=== PATIENT | female | born 1940 | race Caucasian/White ===

== ENCOUNTER → 2023-09-09 11:05 | Outpatient (REF) | payer OTHER, MEDICARE, BC, SELFPAY ==
[2023-09-09 11:26] LABS: % Basophils 0.7 % (0-2); % Eosinophils 3.3 % (0-6); % Immature Granulocytes 0.4 % (0-0.5); % Lymphocytes 37.8 % (20.5-51.1); % Monocytes 9.8 % (1.7-9.3); Absolute Eosinophils 0.2 10^3/uL (0-0.7); Absolute Lymphocytes 1.7 10^3/uL (1.2-3.4); Absolute Monocytes 0.5 10^3/uL (0.1-0.6); Absolute Neutrophils 2.2 10^3/uL (1.4-6.5); Hematocrit 26.3 % (37.0-47.0); Hemoglobin 8.2 g/dL (12.0-16.0); Mean Corp Hgb Conc. 31.2 g/dL (33.0-37.0); Mean Corpuscular Volume 73.9 fL (81.0-99.0); Mean Platelet Volume 9.9 fL (7.4-10.4); Nucleated Red Blood Cells % 0 %; Platelet Count 251 10^3/uL (130-400); Red Blood Cell Count 3.56 10^6/uL (4.20-5.40); Red Cell Dist. Width 16.6 % (11.5-14.5); White Blood Cell Count 4.6 10^3/uL (4.8-10.8)
[2023-09-09 12:32] LABS: Blood Urea Nitrogen 30 mg/dl (7-17); Calcium 8.4 mg/dl (8.4-10.2); Carbon Dioxide 20 mmol/L (22-30); Chloride 103 mmol/L (98-107); Glucose 105 mg/dl (70-99); Potassium 3.8 mmol/L (3.5-5.1); Sodium 136 mmol/L (135-145); eGFR 31.61
== END ==
LOC: OLABN 11:05
PROVIDERS: ATTENDING PHYSICIAN Student in an Organized Health Care Education/Training Program
DX: Z01.818 Encounter for other preprocedural examination (principal)
CPT/HCPCS: 36415; 80048; 85025

== ENCOUNTER → 2023-09-11 07:13 | Outpatient (REF) | payer MEDICARE, BC, SELFPAY | LOC: RAD 07:13 | PROVIDERS: ATTENDING PHYSICIAN Physician Assistant Surgical; FAMILY PHYSICIAN Internal Medicine | DX: S42.291A Other displaced fracture of upper end of right humerus, initial encounter for closed fracture (principal) | CPT/HCPCS: 73200 ==

== ENCOUNTER 2023-09-16 05:51 | Inpatient (IN) | payer MEDICARE, BC, SELFPAY ==
--- NOTE | 2023-09-08 10:02 | CM ---
Addendum entered by Carolina Espinosa 09/10/23 08:50:
Spoke with Carolina at [facility]. Reviewed upcoming surgery and plan for patient to return to [facility] day after surgery. They will contact daughter about holding the bed.
Addendum entered by Carolina Espinosa 09/10/23 07:11:
Spoke with patient's daughter, Inocencia. She confirms that patient is a short term resident at [facility] and that goal is for her to return home with her when able. She states that her plan is for patient to return to [facility] after her upcoming TSA. She will
speak with [facility] about paying to hold her mother's bed.
Original Note:
Patient has a fractured R Proximal humerus and is scheduled for a R Reverse TSA on 09/16/23. Patient is currently at [facility] for short term rehab. Call placed to [facility] and spoke with Maggie munitions handler supervisor ([phone]). She states that patient has been
there since 08/25/23. She requires total care and a mechanical lift is used for transfers. She is currently skilled and stay is being covered by Medicare.
Call placed to daughter, Inocencia. Message was left with request for return call to discuss discharge plans.
Plan: Orthopedic Navigator will be involved in the care of patient after surgery and will reassess discharge needs at that time.
--- NOTE | 2023-09-14 14:09 | PTCARENOTE ---
Emmanuelle at 's office was notified of the following abnormal labs: Hgb 8.2 (09/09/23); HgbA1c 8.0 (08/31/23) and INR 1.41 (08/16/23).
[2023-09-16] VITALS (28 sets, daily range): BP systolic 78–150; BP diastolic 51–111; PULSE 2–103; BMI 26.6
[2023-09-16 06:28] LABS: Glucose - Point of Care 76 mg/dl (70-99)
[2023-09-16] MEDS: MOBIC 15 MG PO (06:44)
[2023-09-16] MEDS: TYLENOL 1000 MG PO (06:44)
[2023-09-16] MEDS: NORMOSOL-R 1000 IV (06:44)
[2023-09-16] MEDS: CLEOCIN 50 IV (07:18)
[2023-09-16 09:07] LABS: Glucose - Point of Care 106 mg/dl (70-99)
--- NOTE | 2023-09-16 09:41 | PTCARENOTE ---
Patient desaturated and stopped breathing, patient ventilated and anesthesia called. Maxim Parra RN BSN.
--- NOTE | 2023-09-16 09:49 | SUR.PHASEI ---
Anesthesia ventilating patient narcan and romazcon gievn. Suggameadex 200mgs given.
--- NOTE | 2023-09-16 10:03 | SUR.PHASEI ---
Patient breathing by self and holding sats, more awake, still no speech. Non rebreather, OA, in place. E Pradeep langley RN BSN>
[2023-09-16] MEDS: LOPRESSOR 2.5 MG IV (10:05)
--- NOTE | 2023-09-16 10:17 | SUR.PHASEI ---
Patient now awake and groaning, BP stable and heart rate decreased. Maxim langley RN BSN.
--- NOTE | 2023-09-16 10:32 | PTCARENOTE ---
Patient now awake and asking for pain medicine. Dr Elizondo contacted. Maxim langley RN BSN.
[2023-09-16] MEDS: DILAUDID 0.25 MG IV ×2 (10:35→10:50)
--- NOTE | 2023-09-16 10:53 | SUR.PHASEI ---
Patient continues to groan and she she is in pain. Dilaudid given per Dr rosenberg, waiting for IV offirmev. Maxim Parra RN BSN.
--- NOTE | 2023-09-16 11:16 | CON.HOSP ---
Family Physician
-
Family Physician: INTERVIEWE UNKNOWN - PT NOT
Chief Complaint
-
Asked to see in PACU because of respiratory issues
History of Present Illness
Patient had a routine right reverse TSA today. She had a history of right humerus fracture.
Upon arrival to PACU within a short time she she had what the RN describes as a respiratory arrest for which she received Narcan, flumazenil and sugammadex. She was initially on nonrebreather currently switched to nasal cannula at 6 L.
Currently patient is more alert. She is oriented to self and place.
She currently denies shortness of breath but apparently was complaining of shortness of breath initially to FLAKE CUTTER OPERATOR.
Denies any chest pain.
Denies any nausea or vomiting.
Denies any cough.
Reviewing of past medical records patient had suspected left basilar pneumonia in August 2023. She is known to have COPD. History of sleep apnea with nocturnal hypoxemia
She was here in hospital end of August was discharged 09/04/2023 after an episode of acute hypoxic respite insufficiency attributed to sedation from oxycodone.
She had chest x-ray which showed improving left basilar atelectasis/pneumonia. She had a VQ scan which showed intermediate probability and ultrasound of the legs was negative for DVT. No anticoagulation was indicated at that time. Was seen by
pulmonary.
Medical History
Past Medical History
Past Medical History: Reports Arrhythmia (Paroxysmal A-fib), CAD, CHF, COPD, CVA, GERD, HTN, Hypothyroidism, NIDDM, Renal Failure (Chronic kidney disease stage IIIb) and Psychiatric (Anxiety/depression; mild cognitive impairment)
Past Surgical History: Reports Cardiac (CABG, Watchman procedure)
Social History
Tobacco: Non-smoker
Alcohol: None
Drug: None
Family History
Family History: Reviewed & Not Pertinent
Allergies / Home Medications
Allergies reflects when Allergies were last updated in [facility].
Home Medications with original date entered in [facility]
Allergy/Medication List:
Allergies
Allergy/AdvReac Type Severity Reaction Status Date / Time
adhesive Allergy Unknown Verified 09/16/23 06:56
amiodarone Allergy Unknown Verified 09/16/23 06:56
cephalexin [From Keflex] Allergy Unknown/tolerated Verified 09/16/23 06:56
ceftriaxone
latex Allergy Unknown Verified 09/16/23 06:56
prochlorperazine Allergy Unknown Verified 09/16/23 06:56
[From Compazine]
prochlorperazine edisylate Allergy Unknown Verified 09/16/23 06:56
[From Compazine]
prochlorperazine maleate Allergy Unknown Verified 09/16/23 06:56
[From Compazine]
Sulfa (Sulfonamide Allergy Unknown Verified 09/16/23 06:56
Antibiotics)
sulfasalazine Allergy pt states Verified 09/16/23 06:56
gives her
a headache
Home Medications
gabapentin 300 mg capsule 300 mg PO DAILY@829 Pain 09/23/22
glimepiride 2 mg tablet 2 mg PO DAILY@829 Diabetes 09/23/22
levothyroxine 112 mcg tablet 112 mcg PO DAILY@629 Thyroid 09/23/22
pantoprazole 40 mg tablet,delayed release 40 mg PO BID@829,2029 Gastrointestinal issue 09/23/22
rosuvastatin 20 mg tablet 20 mg PO DAILY@2029 High cholesterol 09/23/22
sertraline 50 mg tablet 50 mg PO DAILY@829 Mental Health 09/23/22
vibegron 75 mg tablet (Gemtesa) 75 mg PO DAILY@829 Urinary Issue 01/04/23
gabapentin 300 mg capsule 600 mg PO DAILY@2029 Pain 08/16/23
acetaminophen 325 mg tablet (Tylenol) 650 mg PO Q4H PRN mild pain/fever>100.4 09/02/23
acetaminophen 500 mg tablet (Pharbetol) 1,000 mg PO Q12H@0830,202909/02/23
albuterol sulfate 90 mcg/actuation aerosol inhaler 1 puff inhalation R Q6HPRN PRN dyspnea 09/02/23
benzocaine 20 %-resorcinol 3 % topical cream (Vagicaine) 1 applic topical BIDPRN PRN apply to vaginal area 09/02/23
bisacodyl 10 mg rectal suppository 10 mg [place] DAILY PRN q 3 days when no BM and MOM/lactulose ineffective 09/02/23
furosemide 40 mg tablet 40 mg PO DAILY@0830 09/02/23
magnesium hydroxide 400 mg/5 mL oral suspension (Milk of Magnesia) 30 ml PO HSPRN PRN constipation 09/02/23
methenamine hippurate 1 gram tablet 1 g PO Q12H@0830,202909/02/23
metoprolol succinate 25 mg tablet,extended release 24 hr (Toprol XL) 25 mg PO DAILY@0830 HTN 09/02/23
midodrine 10 mg tablet 5 mg PO TID PRN if SBP<100 or complaints of dizziness 09/02/23
multivitamin 1 tab PO DAILY@0830 09/02/23
alprazolam 0.25 mg tablet 0.25 mg PO HS PRN anxiety #10 tabs 09/04/23
oxycodone 5 mg capsule 5 mg PO BID PRN Pain #14 caps 09/04/23
chlorhexidine gluconate 4 % topical liquid (Hibiclens) 1 applic topical . DIRECTED 09/11/23
docusate sodium 100 mg capsule (Colace) 200 mg PO DAILY 09/11/23
mupirocin 2 % topical ointment 1 applic topical BID 09/11/23
Review of Systems
-
Unable to obtain full review of systems at this time due to: Other (Limited as the patient is improving with her mentation.)
Respiratory: Denies Cough or Trouble Breathing
Cardiac: Denies Chest Pain
Abdomen/GI: Denies Abdominal Pain, Nausea or Vomiting
Neurological: Denies Dizzy or Headache
Physical Exam
Vital Signs
Vital Signs
Temp Pulse Resp BP Pulse Ox
98.4 F 103 18 81/52 93
09/16/23 10:56 09/16/23 11:01 09/16/23 11:01 09/16/23 11:01 09/16/23 11:00
Physical Exam
General: No Apparent Distress
HEENT: Moist Mucous Membranes
Respiratory: Rales (Left lower zone predominant. There are a few in the right base) and Non Labored Respirations; Negative Wheezes or Accessory Resp Muscle Use
Cardiac: S1/S2, Regular Rhythm (On the monitor) and Tachycardia
GI: Soft and Non Tender
Neuro: Awake, Alert (Improving mentation) and Oriented (Place and person)
Psych: Calm
Laboratory Results
-
Pending
Data Reviewed
-
Lab Data: Labs Reviewed (Pending)
Impression / Plan
-
Acute hypoxic respiratory failure with respiratory arrest as witnessed by FLAKE CUTTER OPERATOR-improved with a combination of Narcan/flumazenil/sugammadex in PACU. Patient without any acute respiratory distress currently but still requiring 6 L of oxygen.
Unclear if it is all related to medication but rule out underlying cardiopulmonary acute issues.
Admit to IMU.
Get a stat chest x-ray.
Check EKG, troponins and BNP. Obtain ABG
Pulmonary consulted already.
Continue with current oxygen therapy.
Obtain speech eval prior to bed.
S/p elective right reverse TSA for right humerus fracture-continue postop care per orthopedics
CAD s/p prior CABG-patient currently without chest pain. Follow on telemetry. Obtain EKG and troponins. Continue with her home cardiac regimen.
Paroxysmal atrial fibrillation s/p Watchman procedure-continue the beta-halima. Patient currently with tachycardia but in regular rhythm on telemetry. Obtain EKG.
Chronic heart failure with preserved EF-rule out decompensation. Obtain a chest x-ray and BNP. On 40 mg of Lasix at home.
History of COPD-currently with no reactive airways.
History of obstructive sleep apnea not on CPAP
Full code
RENAE FLAKE CUTTER OPERATOR
RENAE COLE
--- NOTE | 2023-09-16 11:21 | SUR.PHASEI ---
1100 BP 81/52, DR rosenberg informed, Offirmev held due to Hypotension, pain is better. Maxim Parra PEER FINANCIAL COUNSELOR.
--- NOTE | 2023-09-16 11:38 | SUR.PHASEI ---
Report to Margie, patient stable and calm at this time. BP 91/53. Heart rate 85bpm. sat 95% on 4/l . Maxim Parra RN BSN.
--- NOTE | 2023-09-16 11:59 | TRANSFER ---
Patient transferred to IMU post respiratory arrest in PACU. Report to Margie MCACIN. Patient wakes to name and answers appropriately. Maxim Parra RN BSN.
--- NOTE | 2023-09-16 12:08 | CON.PUL ---
Consultation
Consultation Request
Date/Time Consultation Requested: 09-16-23
Date/Time Consultation Performed: 09-16-23
Requesting Provider: Dr Rodriguez
Performing Provider: Dr Chester
Reason for Consultation: hypoxemia
Medical History
-
Chief Complaint: hypoxemia
History of Present Illness:
Mrs Margie Rolon is an 83/W adm 09-16 for witnessed respiratory arrest upon arrival to PACU from elective right reverse TSA for right humerus fracture. Given narcan/flumazenil/sugammadex with clinical improvement but still requiring O2. Adm to IMU
H/o nocturnal hypoxemia on 2L
LLNS, no h/o OLD
Seen at IMU, sleeping, arousable, denies major complaints
Past Medical History
Past Medical History: Other (see A&P for PMH/PSH)
Social History
Tobacco: Non-smoker
Alcohol: None
Drug: None
Personal: Single
Living: With Family
Employment: Not Employed
Family History
Family History: Reviewed & Not Pertinent
Allergies / Home Medications
Allergies
Allergy/AdvReac Type Severity Reaction Status Date / Time
adhesive Allergy Unknown Verified 09/16/23 06:56
amiodarone Allergy Unknown Verified 09/16/23 06:56
cephalexin [From Keflex] Allergy Unknown/tolerated Verified 09/16/23 06:56
ceftriaxone
latex Allergy Unknown Verified 09/16/23 06:56
prochlorperazine Allergy Unknown Verified 09/16/23 06:56
[From Compazine]
prochlorperazine edisylate Allergy Unknown Verified 09/16/23 06:56
[From Compazine]
prochlorperazine maleate Allergy Unknown Verified 09/16/23 06:56
[From Compazine]
Sulfa (Sulfonamide Allergy Unknown Verified 09/16/23 06:56
Antibiotics)
sulfasalazine Allergy pt states Verified 09/16/23 06:56
gives her
a headache
Home Medications
Medication Instructions Recorded Confirmed Last Taken Type
gabapentin 300 mg capsule 300 mg PO DAILY@0830 Pain 09/23/22 09/16/23 09/15/23 08:30 History
glimepiride 2 mg tablet 2 mg PO DAILY@0830 Diabetes 09/23/22 09/16/23 09/15/23 08:30 History
levothyroxine 112 mcg tablet 112 mcg PO DAILY@0630 Thyroid 09/23/22 09/16/23 09/15/23 06:30 History
pantoprazole 40 mg tablet,delayed 40 mg PO BID@30,202909/23/22 09/16/23 09/15/23 20:30 History
release Gastrointestinal issue
rosuvastatin 20 mg tablet 20 mg PO DAILY@2029 High 09/23/22 09/16/23 09/15/23 20:30 History
cholesterol
sertraline 50 mg tablet 50 mg PO DAILY@0830 Mental Health 09/23/22 09/16/23 09/15/23 08:30 History
vibegron 75 mg tablet (Gemtesa) 75 mg PO DAILY@0830 Urinary Issue 01/04/23 09/16/23 09/15/23 20:30 History
gabapentin 300 mg capsule 600 mg PO DAILY@2029 Pain 08/16/23 09/16/23 09/15/23 20:30 History
acetaminophen 325 mg tablet 650 mg PO Q4H PRN mild 09/02/23 09/16/23 09/14/23 12:30 History
(Tylenol) pain/fever>100.4
acetaminophen 500 mg tablet 1,000 mg PO Q12H@0830,202909/02/23 09/16/23 09/15/23 20:30 History
(Pharbetol)
albuterol sulfate 90 mcg/actuation 1 puff inhalation R Q6HPRN PRN 09/02/23 09/16/23 Unknown History
aerosol inhaler dyspnea
benzocaine 20 %-resorcinol 3 % 1 applic topical BIDPRN PRN apply 09/02/23 09/16/23 09/15/23 20:30 History
topical cream (Vagicaine) to vaginal area
bisacodyl 10 mg rectal suppository 10 mg [place] DAILY PRN q 3 days when 09/02/23 09/16/23 Unknown History
no BM and MOM/lactulose ineffective
furosemide 40 mg tablet 40 mg PO DAILY@0830 09/02/23 09/16/23 09/15/23 08:30 History
magnesium hydroxide 400 mg/5 mL 30 ml PO HSPRN PRN constipation 09/02/23 09/16/23 Unknown History
oral suspension (Milk of Magnesia)
methenamine hippurate 1 gram tablet 1 g PO Q12H@0830,2030 09/02/23 09/16/23 09/15/23 20:30 History
metoprolol succinate 25 mg 25 mg PO DAILY@0830 HTN 09/02/23 09/16/23 09/15/23 08:30 History
tablet,extended release 24 hr
(Toprol XL)
midodrine 10 mg tablet 5 mg PO TID PRN if SBP<100 or 09/02/23 09/16/23 Unknown History
complaints of dizziness
multivitamin 1 tab PO DAILY@0830 09/02/23 09/16/23 Unknown History
alprazolam 0.25 mg tablet 0.25 mg PO HS PRN anxiety #10 tabs 09/04/23 09/16/23 09/15/23 23:59 Rx
oxycodone 5 mg capsule 5 mg PO BID PRN Pain #14 caps 09/04/23 09/16/23 09/15/23 23:59 Rx
chlorhexidine gluconate 4 % 1 applic topical . DIRECTED 09/11/23 09/16/23 09/15/23 20:30 History
topical liquid (Hibiclens)
docusate sodium 100 mg capsule 200 mg PO DAILY 09/11/23 09/16/23 09/15/23 08:30 History
(Colace)
mupirocin 2 % topical ointment 1 applic topical BID 09/11/23 09/16/23 09/15/23 18:30 History
Review of Systems
-
Unable to Obtain full review of systems at this time due to: Acuity
Vitals / Labs / Diagnostic Testing
Vital Signs
Temp Pulse Resp BP Pulse Ox
98.3 F 95 14 91/53 95
09/16/23 11:40 09/16/23 11:30 09/16/23 11:30 09/16/23 11:30 09/16/23 11:30
Diagnostic Testing:
Physical Exam
-
HEENT: Normocephalic and Moist Mucous Membranes
Cardiovascular: Regular Rhythm, Murmur (n), Peripheral Edema and JVD
Respiratory: Clear and Non-Labored Respirations
GI: Soft, Non Distended and Non Tender
Neurology: Other (sleepy, arousable)
Skin: Dry
General: Respiratory Distress
Assessment
-
Assessment:
Mrs Margie Rolon is an 83/W adm 09-16 for witnessed respiratory arrest upon arrival to PACU from elective right reverse TSA for right humerus fracture. Given narcan/flumazenil/sugammadex with clinical improvement but still requiring O2. Adm to IMU
Impression:
Witnessed respiratory arrest post orthopedic surgery
Responded to narcan/flumazenil/sugammadex
Conditions LAUNDERER HAND:
Adm 09-02 to 24 for hypoxemia, decreased MS, hypoglycemia. Negative RUBÉN doppler, V/Q with suspected perfusion defect at L base but associated with atelectatic area
Suspected L basilar pneumonia, adm DH in early Aug 2023
Nocturnal hypoxemia on O 2 2L
Chronically dilated and hypokinetic right ventricle since echocardiogram May 2022
RUE fracture secondary to fall 08-25
Afib
Asthma
CKD s/p 2 m HD in past
CAD
Chronic anemia
Cancer (Breast)
COPD
CVA
GERD
HTN
Hypercholesterolemia
NIDDM
Hypothyroidism
Anxiety
Depression
Headaches
Slight Dementia
Sleep apnea
PNA
RBBB
Rheumatic heart disease
Hep C
IBS
GI bleed
UTI
Fatty liver
Anemia
Cardiac (bypass, Ablation)
Cholecystectomy
Ovarian cyst
Uterine fibroids
Hysterectomy
Nephrectomy
Non-smoker
Plan:
Witnessed respiratory arrest post orthopedic surgery
Likely secondary to anesthetic meds for surgey in an elderly frail patient with outpatient use of gabapentin, sertraline, alprazolam
Responded to narcan/flumazenil/sugammadex
Of note, recent transient decrease in MS and hypoxemia in last adm, suspected due to opiate, gabapentin, sertraline, alprazolam used as outpatient LAUNDERER HAND
Seen at IMU
Currently on O2 4L NC, POx 96%
Sleeping, in no resp distress, arousable, denies any major complaints, slightly confused
ABG on 4L: mild respiratory acidosis with normoxemia
Start short BPAP trial 21/12 with O2 at 3L, keep POx >=94%
Alb nebs tid and prn for now
Follow MS
Keep asp precs
IS when able
Pain mgmt
Avoid opiates as much as possible
Avoid sedatives medications as much as possible
On high dose ASA per ortho
Diagnostic tests:
CXR 09-16-23: portable, blurred L diaphragm, no gross infiltrates. Sternotomy wiring
CXR 09-02-23 c/ 09: no change in L basilar atelectasis
V/Q 09-03-23: intermediate prob, one mismatch segmental perfusion defect in LLL with corresponding L base atelectasis (unchanged on previous CXR)
RUBÉN doppler 09-02-23: negative
TTE 01-06-23
CONCLUSIONS
Normal left ventricular chamber size. Normal left ventricular wall thickness.
Normal LV systolic function. Estimate ejection fraction 50 to 55% visually.
There are no regional wall motion abnormalities noted on a technically
difficult study. Diastolic function indeterminate.
Mitral valve opens normally. Mitral annular calcification. Trace mitral
regurgitation.
Tricuspid valve opens normally. Mild to moderate tricuspid regurgitation.
Estimated pulmonary artery pressure of 44 mmHg assuming a right atrial pressure
of 3 mmHg.
Severely dilated right atrium.
Dilated hypokinetic right ventricle.
Since echocardiogram May 2022, right ventricle is dilated and hypokinetic.
--- NOTE | 2023-09-16 12:23 | W.PN.ORTHO ---
Today's Communication / Plan
-
Monitor O2 and hgb closely.
Await lab/CXR/EKG results.
Work w/ PT and OT as able.
Assessment
.
Distal Motor Intact: Yes
Dressing:
Clean, dry and intact.
Assessment:
Closed displaced fracture of proximal end of R humerus after mechanical fall, status post R Reverse TSA w/ Dr Rodriguez 09/16/23
DVT prophylaxis - ASA 325 mg PO daily x4 weeks, b/l venous foot pumps
Joint prophylaxis - Clindamycin 300 mg PO TID x3 days (total of 9 doses). Clindamycin chosen d/t various medication allergies
Pain control: Tylenol QID (dose reduced d/t MAZARIEGOS), resumption of home Gabapentin, and Oxycodone as needed. Would be fine w/ change to different narcotic as needed/narcotic hold should it effect her breathing and cognition. Will monitor closely.
Post-operative course complicated by breathing issues in PACU. Given complexity of patient's PMHx and her current post-operative course, will transfer to hospitalist service due to need for higher level of care (IMU).
Pulmonary has also been consulted.
She denies any current SOB, chest pain when asked.
Reports she 'sometimes' uses supplemental O2 at [place]. When asked how often, she replied 'maybe once a month'.
Notable PMHx includes A fib status post MAZE 2011 and Watchman 2016 (no OAC), CHFpEF, RONDA, COPD, recent LLL pneumonia requiring hospital admission 08/16/23, and opioid dependence.
Labs/CXR/EKG still pending.
Will continue to follow from an orthopedic standpoint.
Plan for d/c back to [facility] when stable.
Plan
.
Surgery / Date: R Reverse TSA w/ Dr Rodriguez 09/16/23
DVT Prophylaxis: Aspirin
Activity:
Out of bed.
PT/OT
Discharge Plan: SNF
Subjective
.
.:
Patient examined resting in PACU.
Breathing issues noted while recovering; both hospitalist and pulmonary contacted for further medical guidance. Pt currently on 6L supplemental O2 during my eval.
R shoulder pain well tolerated after 2 doses of IV Dilaudid in PACU.
Vital Signs and Labs
.
Vital Signs and Labs:
Temp Pulse Resp BP Pulse Ox
97.3 F 115 15 139/84 95
09/16/23 08:45 09/16/23 09:15 09/16/23 09:15 09/16/23 09:15 09/16/23 09:15
Physical Exam
-
HEENT: No pallor, cyanosis, or jaundice. Throat clear.
NECK: Supple. No JVD.
RESPIRATORY: Rales present LL lobe. Breathing non-labored.
CVS: Irregular irregular.
EXTREMITIES: + RUE sling. Able to wiggle fingers b/l.
RN TRAUMA: AOx2 (person, place). Mild cognitive impairment noted.
[2023-09-16 12:24] LABS: Glucose - Point of Care 204 mg/dl (70-99)
[2023-09-16 12:35] LABS: B.E. -2.5 mmol/L; HCO3 24.1 mmol/L (21-28); O2 Saturation % 98.2 % (94-98); PCO2 49 mmHg (32-35); PO2 99 mmHg (83-108)
[2023-09-16 13:47] LABS: Hematocrit 31.3 % (37.0-47.0); Hemoglobin 9.2 g/dL (12.0-16.0); Mean Corp Hgb Conc. 29.4 g/dL (33.0-37.0); Mean Corpuscular Hgb 22.8 pg (27.0-31.0); Mean Corpuscular Volume 77.7 fL (81.0-99.0); Mean Platelet Volume 9.1 fL (7.4-10.4); Platelet Count 264 10^3/uL (130-400); Red Blood Cell Count 4.03 10^6/uL (4.20-5.40); Red Cell Dist. Width 15.9 % (11.5-14.5); White Blood Cell Count 6.7 10^3/uL (4.8-10.8)
[2023-09-16] MEDS: VENTOLIN NEBULES 2.5 MG INH ×2 (13:53→19:58)
[2023-09-16 14:00] LABS: Blood Urea Nitrogen 32 mg/dl (7-17); Calcium 8.2 mg/dl (8.4-10.2); Carbon Dioxide 23 mmol/L (22-30); Chloride 102 mmol/L (98-107); Estimated Creatinine Clearance 25 ml/min; Glucose 200 mg/dl (70-99); Potassium 4.9 mmol/L (3.5-5.1); Sodium 133 mmol/L (135-145); eGFR 27.44
[2023-09-16 14:16] LABS: NT-proBNP 7910 pg/ml; Troponin I 0.164 ng/ml
[2023-09-16] MEDS: LASIX PO (14:27)
[2023-09-16] MEDS: TOPROL XL PO (14:28)
[2023-09-16] MEDS: ZOLOFT PO (14:28)
[2023-09-16] MEDS: PROTONIX PO (14:28)
[2023-09-16] MEDS: NEURONTIN PO (14:28)
[2023-09-16] MEDS: ProAmatine PO (14:29)
[2023-09-16] MEDS: TYLENOL PO ×2 (14:29→17:14)
[2023-09-16 17:12] LABS: Glucose - Point of Care 231 mg/dl (70-99)
[2023-09-16] MEDS: OFIRMEV 100 IV (17:12)
[2023-09-16] MEDS: NSS 1000 IV (17:12)
[2023-09-16] MEDS: ProAmatine 5 MG PO (17:13)
[2023-09-16] MEDS: ASPIRIN 325 MG PO (17:14)
[2023-09-16] MEDS: NOVOLOG FLEXPEN-MODERATE RESISTANCE 3 UNITS SC (17:18)
[2023-09-16] MEDS: CLEOCIN PO (18:44)
[2023-09-16] MEDS: NOVOLOG FLEXPEN-MODERATE RESISTANCE SC (18:46)
[2023-09-16 19:55] LABS: Troponin I 0.401 ng/ml
[2023-09-16] MEDS: BACTROBAN 2% OINTMENT 1 APPLIC NASAL (20:41)
[2023-09-16] MEDS: PROTONIX 40 MG PO (20:41)
[2023-09-16] MEDS: COLACE 100 MG PO (20:41)
[2023-09-16] MEDS: SENOKOT 17.1999999999999993 MG PO (20:41)
[2023-09-16] MEDS: CRESTOR 20 MG PO (20:41)
[2023-09-16] MEDS: NEURONTIN 300 MG PO (20:41)
[2023-09-16] MEDS: CLEOCIN 300 MG PO (21:20)
[2023-09-16] MEDS: TYLENOL 500 MG PO (21:20)
[2023-09-16] MEDS: ROXICODONE 5 MG PO (21:24)
[2023-09-16 21:38] LABS: Glucose - Point of Care 258 mg/dl (70-99)
[2023-09-17] VITALS (20 sets, daily range): BP systolic 101–155; BP diastolic 62–128; PULSE 81; O2SAT 93
[2023-09-17] MEDS: XANAX 0.25 MG PO (00:13)
[2023-09-17 03:57] LABS: Hematocrit 27.6 % (37.0-47.0); Hemoglobin 8.4 g/dL (12.0-16.0)
[2023-09-17] MEDS: ROXICODONE 5 MG PO (04:07)
[2023-09-17 04:30] LABS: Troponin I 0.888 ng/ml
[2023-09-17] MEDS: SYNTHROID 112 MCG PO (05:51)
--- NOTE | 2023-09-17 05:58 | PTCARENOTE ---
assumed care of patient- pt is AAOx2-3, forgetful, pt moans out constantly and when asked what is wring patient says nothing. garbled speech noted and anxious at times. pt was on 4L NC at start of shift- titrated down to 2L- 94%. PW in place but
only put out 50ml- pt bladder scanned for 816ml- straight cath'd for 850ml. right shoulder aquacell intact- sling repositioned on patient- ice in place. IV fluids d/c'd this morning per order. foot pumps placed on patient. troponin trending up-
notified covering AUTO REFINISHER of curve up- troponin lab draw ordered for 0900. neurovascular checks to right arm- mild loss of sensation to arm at beginning of shift- this AM pt reports full sensation is back. q2t- care ongoing.
--- NOTE | 2023-09-17 06:19 | W.PN.UPDATE ---
Update Note
Progress Note Update
elevated troponin noted, will continue to peak, patient asymptomatic.
[2023-09-17] MEDS: VENTOLIN NEBULES INH (07:30)
[2023-09-17] MEDS: SENOKOT 17.1999999999999993 MG PO ×2 (07:50→21:03)
[2023-09-17] MEDS: COLACE 100 MG PO ×2 (07:51→21:03)
[2023-09-17] MEDS: ZOLOFT 50 MG PO (07:51)
[2023-09-17] MEDS: CLEOCIN 300 MG PO ×3 (07:53→21:03)
[2023-09-17] MEDS: NEURONTIN 300 MG PO ×2 (07:55→21:03)
[2023-09-17] MEDS: ASPIRIN 325 MG PO (07:55)
[2023-09-17] MEDS: TYLENOL 500 MG PO ×4 (07:55→21:03)
[2023-09-17] MEDS: PROTONIX 40 MG PO ×2 (07:55→21:03)
[2023-09-17] MEDS: LASIX PO (08:00)
[2023-09-17] MEDS: TOPROL XL 25 MG PO (08:00)
[2023-09-17] MEDS: ProAmatine 5 MG PO ×2 (08:00→12:37)
[2023-09-17] MEDS: BACTROBAN 2% OINTMENT 1 APPLIC NASAL ×2 (08:01→21:04)
[2023-09-17] MEDS: NOVOLOG FLEXPEN-MODERATE RESISTANCE 1 UNITS SC ×2 (08:12→17:12)
[2023-09-17 08:16] LABS: Glucose - Point of Care 150 mg/dl (70-99)
[2023-09-17] MEDS: ROXICODONE 7.5 MG PO ×2 (08:17→12:37)
--- NOTE | 2023-09-17 08:35 | W.PN.HOSP.TC ---
Today's Communication/Plan
-
Transfer to tele
Consult cards
Assessment / Plan
Assessment / Plan
Acute hypoxic respiratory failure with respiratory arrest as witnessed by COVER MAKING MACHINE OPERATOR-improved with a combination of Narcan/flumazenil/sugammadex in PACU.� Patient without any acute respiratory distress immediately in PACU and remained so now. She is
now off of oxygen. She is without any respiratory complaints. Suspect related to medication doubt underlying cardiopulmonary acute issues.
Chest x-ray reviewed. ABG showed acute hypercapnia possibly secondary to respiratory depression and arrest. Currently she is alert and oriented. No need for repeat ABG.
Pulmonary following
Abnormal troponins-without chest pain. EKG yesterday showed atrial fibrillation with right bundle branch block. Patient known to have paroxysmal atrial fibrillation. Troponin peak 0.8. Suspect non-PA troponin elevation. Consult cardiology
S/p elective right reverse TSA for right humerus fracture-continue postop care per orthopedics
Microcytic anemia-stable H&H compared to recent. Check iron studies and Hemoccult stools.
Chronic kidney disease stage IV-creatinine at her baseline.
CAD s/p prior CABG-patient currently without chest pain.� Follow on telemetry.� Continue with her home cardiac regimen.
Paroxysmal atrial fibrillation s/p Watchman procedure-continue the beta-halima. Sinus rhythm today
Chronic heart failure with preserved EF-clinically compensated. Continue with home dose of Lasix.
History of COPD-currently with no reactive airways.
History of obstructive sleep apnea not on CPAP
Transfer to telemetry
Anticipated Discharge: 24 - 48 hours
Subjective/Interval History
-
Date of Service: September 17, 2023
Patient currently on room air. She is alert and oriented. Getting her breakfast fed by nurse aide. No nausea vomiting.
Denies any shortness of breath or chest pain. Right shoulder pain is okay.
Objective Data
-
Labs:
Laboratory Results
09/17/23
03:45
Hgb 8.4 L
Hct 27.6 L
Vital Signs:
Vital Signs
Temp Pulse Resp BP Pulse Ox
98.1 F 85 18 122/70 94
09/17/23 04:30 09/17/23 08:00 09/17/23 07:32 09/17/23 08:00 09/17/23 07:32
I&O
09/16/23 09/17/23 09/18/23
06:59 06:59 06:59
Intake Total 198 / 198
Output Total 1580 / 1580
Balance -1382 / -1382
Review of Systems
-
Constitutional: Denies Fever
EENT: Denies Sore Throat
Respiratory: Denies Cough
Neuro: Denies Dizzy
Physical Exam
-
General: No Apparent Distress
HEENT: Moist Mucous Membranes
Respiratory: Clear to Auscultation
Cardiac: Regular Rhythm and S1/S2
GI: Soft
Musculoskeletal: Other (Right shoulder surgical site dressing is clean)
Neuro: AO x 3
Psych: Calm; Negative Confused
Data Reviewed
-
Labs: Labs Reviewed by me
--- NOTE | 2023-09-17 08:40 | CON.CAR ---
Addendum entered and electronically signed by Zaire Nuñez MD 09/17/23 13:30:
Patient denies complaints, pleasantly confused, daughter at bedside
allergies: Amiodarone, cephalosporins, Compazine, sulfa
Outpatient meds: Reviewed furosemide is 40 a day, Gemtesa furosemide, metoprolol ER 25 mg a day, midodrine 3 times daily, rosuvastatin, sertraline, mag again
Inpatient meds: Furosemide 40 mg a day, gabapentin, levothyroxine, metoprolol ER 25 daily, rosuvastatin 20 mg a day, sertraline 50 mg daily, aspirin 325 mg, midodrine 5 mg 3 times daily
PMH/PSH/SH/FH: Reviewed
125/69, pulse 83, resp rate 16, afebrile
Pleasantly confused, right arm in sling, incision intact, lungs Limited exam due to inability to move, intermittent extrasystoles, no obvious murmurs, JVD difficult to assess, abdomen benign extremities without much lower extremity edema, neuro
confused nonfocal
ECG: Sinus rhythm, borderline low voltage, right bundle branch block left axis, cannot exclude inferior lateral NC
ECG #1: Atrial fibrillation, controlled trickle response, right bundle, inferior, possible lateral NC
Telemetry with atrial fibrillation and controlled ventricular response
Hemoglobin 8.4, platelets 264, BUN/creatinine 32 and 1.8, creatinine had been 2.2 on the , proBNP 7910, on the had been 13,114, lowest last year was 2680, peak troponin is 1.08
Impression:
Acute hypoxic respiratory failure with respiratory arrest in PACU post-op shoulder surgery 09/16/23
s/p Elective right reverse TSA 09/16/23
h/o fall and right humerus fracture 08/25/23
h/o acute hypoxemic respiratory insufficiency and somnolence likely due to opiates, gabapentin, sertraline and alprazolam prior to admission 09/02/23
Elevated Troponin
CAD s/p CABG WOOD-LAD, SVG-OM and MAZE 2011
Paroxysmal Afib
Not chronically anticoagulated due to Watchman in place
h/o Watchman placement 2016
very small leak (<5mm) by HUSAM 01/01/17 and 07/06/17, but this size leak is acceptable for this device.h/o CVA 06/2017
CKD 4
Chronic HFpEF
cRBBB
HTN
COPD
Dementia/cognitive dysfunction
Anemia of Chronic Disease
Hull cirrhosis
DM-II with Neuropathy
Hypothyroidism
Echo 05/12/2022:�normal left ventricular size and function with ejection fraction of 55 to 60% and mild LVH.� Mild mitral regurgitation.� Mild tricuspid insufficiency with mildly elevated pulmonary pressures estimated at 40 to 45 mmHg.� No
significant change from September 20, 2021
Echo 01/06/2023: Ejection fraction 50 to 55%, dilated hypokinetic right ventricle
Echo 08/17/23: EF 50% with moderate TR, pulmonary artery pressure 32 mmHg, severely dilated and hypokinetic right ventricle flattened septum in diastole consistent with RV pressure overload and no significant change from December 2022.
Plan:
She presents with a non-NC troponin elevation related to the physiologic stress of respiratory arrest. She appears fairly stable despite this. She is now postop day 1 following reverse right total shoulder arthroplasty
She is still having paroxysmal atrial fibrillation with a controlled ventricular response
Given CAD and elevated troponin, along with recurrent atrial fibrillation, would favor addition of a very low-dose of metoprolol ER
Otherwise patient is stable. If needed, patient could be discharged later today, but I would prefer to observe overnight given troponin elevation and initiation of metoprolol.
I do not think she needs an echo, etc. Our strategy should be conservative given her comorbidities, would not pursue stress testing, etc.
We will arrange for cardiology follow-up.
Original Note:
Consultation
Consultation Request
Date/Time Consultation Requested: 09/17/23 at 0823
Date/Time Consultation Performed: 09/17/23 at 0840
Requesting Provider: Dr. Hamilton
Performing Provider: Dr. TARA Nuñez
Reason for Consultation: Elevated Troponin
Medical History
-
History of Present Illness:
Patient had a respiratory arrest event in PACU yesterday and now her Troponin is elevated so cardiology has been consulted. Patient fell and fractured her right humerus 08/25/23 and was sent to [facility] for rehab. Patient was sent from [facility] to for
respiratory distress and somnolence on 09/02/23. That event was thought to be from recent initiation of pain meds for her fracture. Patient was seen in the cardiology office 09/09/23 for preoperative cardiovascular evaluation for elective right
reverse TSA. Patient reported feeling well at that time and denied any chest pain or SOB. Patient had an up to date echo from 08/17/23 that showed EF 50% and a dilated and hypokinetic RV that was unchanged from echo 12/2022. Patient had an admission
for PNA, CHF and ERIKA 08/16/23 until 08/21/23 and discharge weight was 189 lbs. Patient says she felt well leading up to surgery yesterday and that she does not recall feeling SOB post-op. Nursing and attending notes reviewed, patient was noted to be
acutely hypoxic and apneic upon arrival to PACU and was ventilated and then given Narcan, flumazenil and sugammadex with improvement in oxygenation and respirations. ECG at that time looked like Afib, but now back in SR. Initial Troponin was 0.164
and now up to 0.888. No chest pain.
PMH:
h/o fall and right humerus fracture 08/25/23
h/o acute hypoxemic respiratory insufficiency and somnolence likely due to opiates, gabapentin, sertraline and alprazolam prior to admission 09/02/23
CAD s/p CABG WOOD-LAD, SVG-OM and MAZE 2011
Paroxysmal Afib
Not chronically anticoagulated due to Watchman in place
h/o Watchman placement 2016
very small leak (<5mm) by HUSAM 01/01/17 and 07/06/17, but this size leak is acceptable for this device.
h/o CVA 06/2017
CKD 4
Chronic HFpEF
cRBBB
HTN
COPD
Dementia/cognitive dysfunction
Anemia of Chronic Disease
Hull cirrhosis
DM-II with Neuropathy
Hypothyroidism
Past Medical History
Past Surgical History: Cardiac (CABG 2012, Watchman 2017), Gynecological (BLADIMIR BSO) and Orthopedic
Social History
Tobacco: Non-Smoker
Alcohol: None
Drug: None
Living: Correction (previously lived in her own home, now at [facility] for rehab)
Family History
Family History: CAD and Cancer
Allergies / Home Medications
Allergy/AdvReac Type Severity Reaction Status Date / Time
adhesive Allergy Unknown Verified 09/16/23 06:56
amiodarone Allergy Unknown Verified 09/16/23 06:56
cephalexin [From Keflex] Allergy Unknown/tolerated Verified 09/16/23 06:56
ceftriaxone
latex Allergy Unknown Verified 09/16/23 06:56
prochlorperazine Allergy Unknown Verified 09/16/23 06:56
[From Compazine]
prochlorperazine edisylate Allergy Unknown Verified 09/16/23 06:56
[From Compazine]
prochlorperazine maleate Allergy Unknown Verified 09/16/23 06:56
[From Compazine]
Sulfa (Sulfonamide Allergy Unknown Verified 09/16/23 06:56
Antibiotics)
sulfasalazine Allergy pt states Verified 09/16/23 06:56
gives her
a headache
Medication Instructions Recorded Confirmed Type
gabapentin 300 mg capsule 300 mg PO DAILY@0830 Pain 09/23/22 09/16/23 History
glimepiride 2 mg tablet 2 mg PO DAILY@0830 Diabetes 09/23/22 09/16/23 History
levothyroxine 112 mcg tablet 112 mcg PO DAILY@0630 Thyroid 09/23/22 09/16/23 History
pantoprazole 40 mg tablet,delayed 40 mg PO BID@0830,2030 09/23/22 09/16/23 History
release Gastrointestinal issue
rosuvastatin 20 mg tablet 20 mg PO DAILY@2029 High 09/23/22 09/16/23 History
cholesterol
sertraline 50 mg tablet 50 mg PO DAILY@829 Mental Health 09/23/22 09/16/23 History
vibegron 75 mg tablet (Gemtesa) 75 mg PO DAILY@829 Urinary Issue 01/04/23 09/16/23 History
gabapentin 300 mg capsule 600 mg PO DAILY@2029 Pain 08/16/23 09/16/23 History
acetaminophen 325 mg tablet 650 mg PO Q4H PRN mild 09/02/23 09/16/23 History
(Tylenol) pain/fever>100.4
acetaminophen 500 mg tablet 1,000 mg PO Q12H@09/02/23 09/16/23 History
(Pharbetol)
albuterol sulfate 90 mcg/actuation 1 puff inhalation R Q6HPRN PRN 09/02/23 09/16/23 History
aerosol inhaler dyspnea
benzocaine 20 %-resorcinol 3 % 1 applic topical BIDPRN PRN apply 09/02/23 09/16/23 History
topical cream (Vagicaine) to vaginal area
bisacodyl 10 mg rectal suppository 10 mg DC DAILY PRN q 3 days when 09/02/23 09/16/23 History
no BM and MOM/lactulose ineffective
furosemide 40 mg tablet 40 mg PO DAILY@82909/02/23 09/16/23 History
magnesium hydroxide 400 mg/5 mL 30 ml PO HSPRN PRN constipation 09/02/23 09/16/23 History
oral suspension (Milk of Magnesia)
methenamine hippurate 1 gram tablet 1 g PO Q12H@09/02/23 09/16/23 History
metoprolol succinate 25 mg 25 mg PO DAILY@829 HTN 09/02/23 09/16/23 History
tablet,extended release 24 hr
(Toprol XL)
midodrine 10 mg tablet 5 mg PO TID PRN if SBP<100 or 09/02/23 09/16/23 History
complaints of dizziness
multivitamin 1 tab PO DAILY@0830 09/02/23 09/16/23 History
alprazolam 0.25 mg tablet 0.25 mg PO HS PRN anxiety #10 tabs 09/04/23 09/16/23 Rx
oxycodone 5 mg capsule 5 mg PO BID PRN Pain #14 caps 09/04/23 09/16/23 Rx
chlorhexidine gluconate 4 % 1 applic topical . DIRECTED 09/11/23 09/16/23 History
topical liquid (Hibiclens)
docusate sodium 100 mg capsule 200 mg PO DAILY 09/11/23 09/16/23 History
(Colace)
mupirocin 2 % topical ointment 1 applic topical BID 09/11/23 09/16/23 History
Review of Systems
-
History Source: Patient
All other systems: Negative unless noted
Physical Exam
Vital Signs
Temp Pulse Resp BP Pulse Ox
98.1 F 85 18 122/70 94
09/17/23 04:30 09/17/23 08:00 09/17/23 07:32 09/17/23 08:00 09/17/23 07:32
General: NAD. AAO to person, place and situation
HEENT: EOMI, MMM
Skin: Warm, dry and pink. No rash
Heart: Reg, no murmurs, No S3, S4, no rubs.
Lungs: Clear anterolaterally without wheeze or rales
Extremities: No clubbing, cyanosis, lesions or edema B/L
Neuro: Grossly nonfocal
Lab Results
09/17/23 03:45
09/16/23 13:36
Troponin I 0.888 ng/ml H* 09/17/23 03:45
Rfo-G-Qtfawktlntl Pept 7910 pg/ml 09/16/23 13:36
Impression / Plan
-
PCP: Dr Blayne Cheney
Head Silverman: Dr. Ronny Raines
Impression:
Acute hypoxic respiratory failure with respiratory arrest in PACU post-op shoulder surgery 09/16/23
s/p Elective right reverse TSA 09/16/23
h/o fall and right humerus fracture 08/25/23
h/o acute hypoxemic respiratory insufficiency and somnolence likely due to opiates, gabapentin, sertraline and alprazolam prior to admission 09/02/23
Elevated Troponin
CAD s/p CABG WOOD-LAD, SVG-OM and MAZE 2011
Paroxysmal Afib
Not chronically anticoagulated due to Watchman in place
h/o Watchman placement 2016
very small leak (<5mm) by HUSAM 01/01/17 and 07/06/17, but this size leak is acceptable for this device.
h/o CVA 06/2017
CKD 4
Chronic HFpEF
cRBBB
HTN
COPD
Dementia/cognitive dysfunction
Anemia of Chronic Disease
Hull cirrhosis
DM-II with Neuropathy
Hypothyroidism
Echo 05/12/2022:�normal left ventricular size and function with ejection fraction of 55 to 60% and mild LVH.� Mild mitral regurgitation.� Mild tricuspid insufficiency with mildly elevated pulmonary pressures estimated at 40 to 45 mmHg.� No
significant change from September 20, 2021
Echo 01/06/2023: Ejection fraction 50 to 55%, dilated hypokinetic right ventricle
Echo 08/17/23: EF 50% with moderate TR, pulmonary artery pressure 32 mmHg, severely dilated and hypokinetic right ventricle flattened septum in diastole consistent with RV pressure overload and no significant change from December 2022.
Plan:
-Patient had a respiratory arrest event in PACU yesterday and now her Troponin is elevated so cardiology has been consulted. Patient fell and fractured her right humerus 08/25/23 and was sent to [facility] for rehab. Patient was sent from [facility] to for
respiratory distress and somnolence on 09/02/23. That event was thought to be from recent initiation of pain meds for her fracture. Patient was seen in the cardiology office 09/09/23 for preoperative cardiovascular evaluation for elective right
reverse TSA. Patient reported feeling well at that time and denied any chest pain or SOB. Patient had an up to date echo from 08/17/23 that showed EF 50% and a dilated and hypokinetic RV that was unchanged from echo 12/2022. Patient had an admission
for PNA, CHF and ERIKA 08/16/23 until 08/21/23 and discharge weight was 189 lbs. Patient says she felt well leading up to surgery yesterday and that she does not recall feeling SOB post-op. Nursing and attending notes reviewed, patient was noted to be
acutely hypoxic and apneic upon arrival to PACU and was ventilated and then given Narcan, flumazenil and sugammadex with improvement in oxygenation and respirations. ECG at that time looked like Afib, but now back in SR. Initial Troponin was 0.164
and now up to 0.888. No chest pain.
-Patient with acute hypoxic respiratory failure and respiratory arrest after right shoulder surgery yesterday that improved with Narcan, flumazenil and sugammadex without recurrence. Patient had a similar hypoxic event when she was sent from [facility] to
ER 09/02/23 thought to be related to pain meds and BZDs.
-From a cardiac standpoint, patient's Troponin is up to 0.888. 4th Troponin pending. ECG reviewed by me without acute ischemic change and no chest pain. Will manage as a nonischemic myocardial injury Troponin elevation due to acute hypoxic
respiratory event.
-Consider checking echo if Troponin increases dramatically.
-ECG from 09/16/23 read as Afib. Patient with a h/o paroxysmal Afib. She is back in SR now. Patient is s/p Watchman in 2017 and has a known very small leak surrounding implanted device, but this has been felt to be acceptable. Patient had a CVA
06/2017 and repeat HUSAM showed a stable very small leak and no changes proposed. Neurology felt at that time that TIA/CVA events in the setting of DAISY occlusion device tent to be much smaller and less devastating types of events.
-Patient is below her previous dry weight, pro-BNP is the lowest it has been in a month and she does not examine in acute HF. Her outpatient dose of Lasix 40 mg PO daily is being held for SBP less than 145, will change hold parameter so that patient
can resume her Lasix.
-Follow BMP, not checked today, will recheck in AM. Patient with known CKD 4 and baseline Cre 1.9.
--- NOTE | 2023-09-17 09:50 | PTOTSP ---
Dysphagia Evaluation
Patient presents with signs concerning for mild oral dysphagia with no signs of pharyngeal dysphagia or aspiration at the bedside. She has a history of mild oral and WFL pharyngeal dysphagia as observed on 2 prior swallow studies (08/26/2022,
12/30/2022). Chest x-ray this admission without signs concerning for aspiration complications.
Patient is at her baseline. No further dysphagia therapy warranted at this time. Please reconsult as appropriate.
Recommend:
1. Regular (pick soft/moist foods), Thin Liquids
2. Medications - as best tolerated
3. FULL supervision and assistance
4. Strategies: cut foods into bite sized pieces, slow rate, liquid wash as needed to assist with oral clearance, reflux precautions
--- NOTE | 2023-09-17 10:22 | W.PN.PUL3 ---
Today's Communication / Plan
-
discontinue BiPAP
Oxygen has been weaned off
Discontinue bronchodilators
Continue postoperative care
Cardiology evaluation per primary team
Sign off
Assessment
-
Assessment:
Mrs Margie Rolon is an 83/W adm 09-16 for witnessed respiratory arrest upon arrival to PACU from elective right reverse TSA for right humerus fracture. Given narcan/flumazenil/sugammadex with clinical improvement but still requiring O2. Adm to IMU
Impression:
Witnessed respiratory arrest post orthopedic surgery
Responded to narcan/flumazenil/sugammadex
Acute hypercapnic respiratory failure: Medication effect
Conditions HUMAN PROJECTILE:
Adm 09-02 to 24 for hypoxemia, decreased MS, hypoglycemia. Negative RUBÉN doppler, V/Q with suspected perfusion defect at L base but associated with atelectatic area
Suspected L basilar pneumonia, adm DH in early Aug 2023
Nocturnal hypoxemia on O 2 2L
Chronically dilated and hypokinetic right ventricle since echocardiogram May 2022
RUE fracture secondary to fall 08-25
Afib
Asthma
CKD s/p 2 m HD in past
CAD
Chronic anemia
Cancer (Breast)
COPD
CVA
GERD
HTN
Hypercholesterolemia
NIDDM
Hypothyroidism
Anxiety
Depression
Headaches
Slight Dementia
Sleep apnea
PNA
RBBB
Rheumatic heart disease
Hep C
IBS
GI bleed
UTI
Fatty liver
Anemia
Cardiac (bypass, Ablation)
Cholecystectomy
Ovarian cyst
Uterine fibroids
Hysterectomy
Nephrectomy
Non-smoker
Plan:
Witnessed respiratory arrest post orthopedic surgery-acute hypercapnic respiratory failure.
Likely secondary to anesthetic meds for surgey in an elderly frail patient with outpatient use of gabapentin, sertraline, alprazolam
Responded to narcan/flumazenil/sugammadex
Of note, recent transient decrease in MS and hypoxemia in last adm, suspected due to opiate, gabapentin, sertraline, alprazolam used as outpatient HUMAN PROJECTILE
Clinically improved
Oxygen has been weaned off
Mental status back to baseline
No further BiPAP necessary
Clear lung exam
Patient appears comfortable.
No additional recommendations from the pulmonary perspective.
Sign off
Continue with routine postoperative care
Not bronchospastic on exam: Discontinue nebulizers.
-
Cardiology also was consulted for evaluation of abnormal troponins. Patient chest pain-free.
-
Pain mgmt
Avoid opiates as much as possible
Avoid sedatives medications as much as possible
On high dose ASA per ortho

Diagnostic tests:
CXR 09-16-23: portable, blurred L diaphragm, no gross infiltrates. Sternotomy wiring
CXR 09-02-23 c/ 09: no change in L basilar atelectasis
V/Q 09-03-23: intermediate prob, one mismatch segmental perfusion defect in LLL with corresponding L base atelectasis (unchanged on previous CXR)
RUBÉN doppler 09-02-23: negative
TTE 01-06-23
CONCLUSIONS
Normal left ventricular chamber size. Normal left ventricular wall thickness.
Normal LV systolic function. Estimate ejection fraction 50 to 55% visually.
There are no regional wall motion abnormalities noted on a technically
difficult study. Diastolic function indeterminate.
Mitral valve opens normally. Mitral annular calcification. Trace mitral
regurgitation.
Tricuspid valve opens normally. Mild to moderate tricuspid regurgitation.
Estimated pulmonary artery pressure of 44 mmHg assuming a right atrial pressure
of 3 mmHg.
Severely dilated right atrium.
Dilated hypokinetic right ventricle.
Since echocardiogram May 2022, right ventricle is dilated and hypokinetic.
Subjective Data
-
Date of Service:
Date of Service: September 17, 2023
Chief Complaint: Pulmonary Follow Up (Acute respiratory arrest/acute hypercapnic respiratory failure.)
Subjective:
Patient feels better
No acute complaints
Mental status back to baseline
Denies shortness of breath.
Oxygen has been weaned off
Review of Systems
General: Fever (n)
Cardiopulmonary: Dyspnea (n)
Neuro: Headache (n)
Objective Data
Data Reviewed
Vital Signs / I&O / Oxygen:
Vital Signs
Temp Pulse Resp BP Pulse Ox
98.1 F 83 16 125/69 93
09/17/23 04:30 09/17/23 08:00 09/17/23 08:00 09/17/23 08:00 09/17/23 09:59
Intake and Output
09/16/23 09/17/23 09/18/23
06:59 06:59 06:59
Intake Total 198 / 198
Output Total 1580 / 1580
Balance -1382 / -1382
SaO2 93
Nasal Cannula flow liters per 2
minute
Physical Exam
General: Comfortable
HEENT: Normocephalic
Cardiovascular: S1-S2 and Regular Rhythm
Respiratory: Clear and Non-Labored Respirations
GI: Soft and Non Distended
Neurology: Awake, Alert, Oriented and No Motor Deficits
Skin: Warm
Labs/Micro/Reports
Lab Data
09/17/23 03:45
09/16/23 13:36
Laboratory Results
09/16/23
12:22
pH 7.30 L
pCO2 49 H
pO2 99
HCO3 24.1
O2 Delivery Level
[2023-09-17 11:53] LABS: Glucose - Point of Care 146 mg/dl (70-99)
--- NOTE | 2023-09-17 12:36 | W.PN.ORTHO ---
Today's Communication / Plan
-
Continue to monitor.
Work w/ PT and OT as able.
D/c when clinically stable.
Assessment
.
Distal Motor Intact: Yes
Dressing:
Clean, dry and intact.
Assessment:
Closed displaced fracture of proximal end of R humerus after mechanical fall, status post R Reverse TSA w/ Dr Rodriguez 09/16/23
- [place]wicks to be removed in 2 weeks
- Dressing can be removed in 7 days if remaining C/D/I.
DVT prophylaxis - ASA 325 mg PO daily x4 weeks, b/l venous foot pumps
Joint prophylaxis - Clindamycin 300 mg PO TID x3 days (total of 9 doses). Clindamycin chosen d/t various medication allergies
Pain control - Tylenol QID (dose reduced d/t MAZARIEGOS), resumption of home Gabapentin, and Oxycodone as needed. Oxycodone to be used sparingly to avoid impaired cognition, hypoxia.
Post-operative course complicated by breathing issues in PACU. Given complexity of patient's PMHx and her post-operative course, did transfer to hospitalist service due to need for higher level of care (IMU).
Pulmonary was also consulted. Have signed off. Thankfully now on RA.
Cardiology newly consulted due to rising troponin trends. Will await their recs.
Will continue to follow from an orthopedic standpoint.
Plan for d/c back to [facility] when stable.
Plan
.
Surgery / Date: R Reverse TSA w/ Dr Rodriguez 09/16/23
DVT Prophylaxis: Aspirin
Activity:
Out of bed.
PT/OT
Discharge Plan: SNF
Subjective
.
.:
Patient appearing to rest comfortably in bed this AM.
Denies any acute complaints. Overall feels well.
Vital Signs and Labs
.
Vital Signs and Labs:
Lab Results
09/17/23 03:45
09/16/23 13:36
Temp Pulse Resp BP Pulse Ox
98.1 F 83 16 125/69 93
09/17/23 04:30 09/17/23 08:00 09/17/23 08:00 09/17/23 08:00 09/17/23 09:59
Physical Exam
-
HEENT: No pallor, cyanosis, or jaundice. Throat clear.
NECK: Supple. No JVD.
EXTREMITIES: + RUE sling. Able to wiggle fingers b/l. Good energy economist b/l. Strength equal, no calf pain with palpation/dorsiflexion.
DRY WALL INSTALLATIONS MECHANIC: AOx2. Mild cognitive deficits. revenue manager grossly intact
[2023-09-17] MEDS: NOVOLOG FLEXPEN-MODERATE RESISTANCE SC (12:38)
--- NOTE | 2023-09-17 14:13 | PTCARENOTE ---
pt being transferred to tele room 320. report given to recieving rn. troponin still elevating cardiology notified. repeat trop ordered this aftenoon.
--- NOTE | 2023-09-17 14:39 | CM ---
Addendum entered by SHIN Issa 09/17/23 16:00:
[facility] report [phone]
fax [phone]
Addendum entered by SHIN Issa 09/17/23 15:19:
MEdical necessity and transport forms left on chart.
Addendum entered by SHIN Issa 09/17/23 15:17:
[facility] [place] at [facility] no COVID test needed prior to return to SNF.
Addendum entered by SHIN Issa 09/17/23 15:16:
IMM done by Admissions today.
Original Note:
Reviewed chart. Patient admitted as planned for elective R reverse TSA. Met with patient and daughter at bedside. Confirmed information previously obtained for case management assessment and discussed discharge plans. The plan is for patient to
return to [facility] at discharge.
PT to eval as well as OT.
UPdated referral sent to [facility] in [facility].
Patient will use [facility] at [facility] for discharge prescriptions.
Patient will need ambulance for transport back to SNF.
Daughter's goal is to have person return home with private aides and skilled home care services after short term rehab at [facility].
[2023-09-17] MEDS: ROXICODONE 10 MG PO (16:32)
[2023-09-17 16:56] LABS: Glucose - Point of Care 164 mg/dl (70-99)
[2023-09-17] MEDS: ProAmatine PO ×2 (17:13→17:18)
[2023-09-17] MEDS: CRESTOR 20 MG PO (21:03)
[2023-09-17 21:51] LABS: Glucose - Point of Care 139 mg/dl (70-99)
[2023-09-18] VITALS (15 sets, daily range): BP systolic 81–130; BP diastolic 47–92; BMI 24.5
--- NOTE | 2023-09-18 01:04 | PTCARENOTE ---
Addendum entered by Lizzie Duarte RN 09/18/23 01:43:
Pt now placed on Enhanced precautions
Original Note:
Pt bladder scanned for 120mL. Pt grossly incontinent of large amounts of watery stool, purewick removed. HERNANDEZ Biggs notified, received order for stool sample and rectal trumpet. Rectal trumpet placed without difficulty, approx 200mL of brown/green
stool drained immediately.
Stool sample sent at approx 0130.
[2023-09-18] MEDS: XANAX 0.25 MG PO (01:07)
[2023-09-18 06:57] LABS: Hematocrit 32.4 % (37.0-47.0); Hemoglobin 9.8 g/dL (12.0-16.0); Mean Corp Hgb Conc. 30.2 g/dL (33.0-37.0); Mean Corpuscular Hgb 22.8 pg (27.0-31.0); Mean Corpuscular Volume 75.5 fL (81.0-99.0); Mean Platelet Volume 9.7 fL (7.4-10.4); Platelet Count 390 10^3/uL (130-400); Red Blood Cell Count 4.29 10^6/uL (4.20-5.40); Red Cell Dist. Width 16.3 % (11.5-14.5); White Blood Cell Count 17.9 10^3/uL (4.8-10.8)
[2023-09-18 08:12] LABS: Blood Urea Nitrogen 57 mg/dl (7-17); Calcium 8.9 mg/dl (8.4-10.2); Carbon Dioxide 17 mmol/L (22-30); Chloride 96 mmol/L (98-107); Estimated Creatinine Clearance 16 ml/min; Glucose 212 mg/dl (70-99); Iron 46 ug/dl (37-170); Potassium 5.6 mmol/L (3.5-5.1); Sodium 132 mmol/L (135-145); eGFR 16.15
[2023-09-18] MEDS: ASPIRIN PO ×2 (08:12→09:07)
[2023-09-18] MEDS: SYNTHROID PO ×2 (08:12→09:07)
[2023-09-18] MEDS: LASIX PO ×2 (08:12→09:08)
[2023-09-18] MEDS: CLEOCIN PO ×2 (08:12→09:07)
[2023-09-18] MEDS: TYLENOL PO ×5 (08:12→19:29)
[2023-09-18] MEDS: NEURONTIN PO ×3 (08:12→19:28)
[2023-09-18] MEDS: PROTONIX PO ×3 (08:12→19:29)
[2023-09-18] MEDS: ZOLOFT PO ×2 (08:12→09:08)
[2023-09-18] MEDS: SENOKOT PO (08:13)
[2023-09-18] MEDS: TOPROL XL PO ×2 (08:13→09:08)
[2023-09-18] MEDS: ProAmatine PO ×3 (08:13→17:36)
[2023-09-18] MEDS: COLACE PO (08:14)
[2023-09-18 08:22] LABS: Percent Saturation 14 % (20-50); Total Iron Binding Capacity 319 ug/dl (265-497)
--- NOTE | 2023-09-18 08:39 | PTCARENOTE ---
Patient found to be extremely lethargic this AM by RN. SPO2 86% on room air, put on 2L NC and came up to 95%. Vitals stable, MD aware. Will await further orders.
[2023-09-18 08:47] LABS: Ferritin 25.7 ng/ml (11.1-264.0)
--- NOTE | 2023-09-18 09:02 | W.PN.HOSP.TC ---
Today's Communication/Plan
-
ABG
CT head
IV fluids with bicarb.Consult Nephro. Rpt BMP later today.
UA with cx
Blood cx
Assessment / Plan
Assessment / Plan
Acute hypoxic respiratory failure with respiratory arrest as witnessed by FACE HARDENER-improved with a combination of Narcan/flumazenil/sugammadex in PACU.� Patient without any acute respiratory distress immediately in PACU and remained so now. She was
off of oxygen. She was without any respiratory complaints. Suspect related to medication doubt underlying cardiopulmonary acute issues.
Chest x-ray reviewed - limited but no focal dz or CHF. ABG showed acute hypercapnia possibly secondary to respiratory depression and arrest.
Pulmonary inupt noted
Abnormal troponins-without chest pain. EKG on adx showed atrial fibrillation with right bundle branch block. Patient known to have paroxysmal atrial fibrillation. Troponin peak1.2. Continue to trend till peak . Suspect non-RI troponin elevation.
Cardiology input noted.
Change in mental status-patient today with decreased responsiveness. Suspect TME based on available data
Patient on sedative hypnotics and pain regimen. She did receive Ativan this morning. She is arousable but not conversational. This may be sedation but rule out other encephalopathies especially with worsening renal failure and acidosis.
Check ABG first to rule out significant hypercapnia.
This is focal jerking of left upper extremity which looks myoclonic but isolated to the limb. May be encephalopathy related. But in view of known atrial fibrillation and not on anticoagulation we will get a CT head and to rule out acute events.
Persistent left limb jerking consult neurology to rule out focal seizures.
Start on IV fluids with bicarb for acidosis. Consult nephrology.
Hold all sedatives and narcotics
S/p elective right reverse TSA for right humerus fracture-continue postop care per orthopedics
Leukocytosis
Post op
Unclear if reactive
CXR without focl dz
Check UA and blood cx
Microcytic anemia-stable H&H compared to recent. Check iron studies and Hemoccult stools.
ERIKA on Chronic kidney disease stage IV-creatinine at her baseline.
Patient has been retaining urine overnight and now has a Bo catheter. Unclear if acute elevation is secondary to retention. Continue to follow.
With acidosis mild hypercapnia start on IV fluids with bicarbonate for 1 bag. Consult nephrology
CAD s/p prior CABG-patient currently without chest pain.� Follow on telemetry.� Continue with her home cardiac regimen.
Paroxysmal atrial fibrillation s/p Watchman procedure-continue the beta-halima. Sinus rhythm today
Chronic heart failure with preserved EF-clinically compensated. Continue with home dose of Lasix.
History of COPD-currently with no reactive airways.
History of obstructive sleep apnea not on CPAP
cw telemetry
Total time spent on today's encounter was 52 minutes which included time spent in counseling the patient/family regarding diagnosis and treatment plan as listed above, goals of care, and symptom management. Case was discussed with nursing staff,
specialists, All labs and imaging personally reviewed by me. Remainder the time spent in detailed review of previous records, lab data, imaging, and other medical provider documentation.
Anticipated Discharge: > 48 hours
Subjective/Interval History
-
Date of Service: September 18, 2023
Patient was noted to be less responsive this morning when asked.
She Ativan this morning at 1:00 orally. She gets it as needed at bedtime.
Patient opens eyes to commands and painful stimulus but keeps moaning. Not conversing despite multiple attempts -just keeps moaning.
Objective Data
-
Labs:
Laboratory Results
09/18/23
06:49
WBC 17.9 H
Hgb 9.8 L
Hct 32.4 L
Plt Count 390 D
Sodium 132 L
Potassium 5.6 H
Chloride 96 L
Carbon Dioxide 17 L
BUN 57 H
Creatinine 2.8 H
Glucose 212 H
Calcium 8.9
Vital Signs:
Vital Signs
Temp Pulse Resp BP Pulse Ox
98.8 F 77 24 130/92 95
09/18/23 08:35 09/18/23 08:13 09/18/23 08:35 09/18/23 08:13 09/18/23 08:35
I&O
09/17/23 09/18/23 09/19/23
06:59 06:59 06:59
Intake Total 198 / 198 720 / 720
Output Total 1580 / 1580 700 / 700
Balance -1382 / -1382
Review of Systems
-
Unable to obtain full review of systems at this time due to: Other (Due to decreased mentation)
Physical Exam
-
General: No Apparent Distress
HEENT: Moist Mucous Membranes
Respiratory: Clear to Auscultation (Anteriorly) and Non Labored Respirations; Negative Accessory Resp Muscle Use
Cardiac: S1/S2 and Irregular Rhythm; Negative Tachycardic (monitor reviewed)
GI: Soft
Neuro: Awake and Tremors (Jerky movements in LUE not generalized); Negative Alert or No Motor Deficits (Difficult exam she does not participate-tone seems to be normal except in the left upper extremity which is increased.)
Psych: Calm
Data Reviewed
-
Labs: Labs Reviewed by me
[2023-09-18 09:30] LABS: HCO3 19.7 mmol/L (21-28); O2 Saturation % 97.3 % (94-98); PCO2 34 mmHg (32-35); PO2 78 mmHg (83-108); pH 7.37 (7.35-7.45)
--- NOTE | 2023-09-18 10:15 | W.PN.UPDATE ---
Update Note
Progress Note Update
Closed displaced fracture of proximal end of R humerus after mechanical fall, status post R Reverse TSA w/ Dr Rodriguez 09/16/23
- Sky to be removed in 2 weeks
- Dressing can be removed in 7 days if remaining C/D/I
DVT prophylaxis - ASA 325 mg PO daily x4 weeks, b/l venous foot pumps
Joint prophylaxis - Pt was initially on Clindamycin 300 mg PO TID x3 days (total of 9 doses). Clindamycin was chosen d/t various medication allergies. Pt now being worked up for C diff due to liquid stools. After discussing with Fede from pharmacy
and Dr. Rodriguez, we have chosen to d/c the Clindamycin 09/18. We will not order another abx at this time. She will likely need to be on new abx anyway if she is to have C diff.
Pain control - Tylenol QID (dose reduced d/t MAZARIEGOS), resumption of home Gabapentin, and initially Oxycodone as needed. Given reported lethargy this morning, OK w/ Oxycodone being held if necessary
The patient was initially on our standard bowel regimen of Colace and Senna post-op.
Given liquid stools, Colace was d/c this AM. I will d/c Senna to prevent further diarrhea.
Attempted to see patient today but she was getting her head CT done at time of eval.
Appreciate the help of the hospitalist, pulmonary, and cardiology given the complexity of the patient.
We will continue to follow from an orthopedic standpoint.
Plan for d/c back to [facility] when stable.
[2023-09-18] MEDS: SODIUM BICARBONATE 1075 MEQ IV (10:53)
--- NOTE | 2023-09-18 11:00 | CON.NEURO ---
Neuro Assessment/Plan
Assessment
IMPRESSIONS/RECOMMENDATIONS:
Abrupt onset left greater than right upper extremity and left lower extremity movements in a patient with significant dementia and nearly innumerable medical issues, including current hypotension
Most likely etiology is related to underlying dementia and metabolic insufficiencies
This is not clearly consistent with epilepsy associated with focal onset, impaired awareness
Plan
Check EEG
Determine use of antiseizure medication based on EEG results
Attempt to remediate likely metabolic causes for movements and current hypotension
? Hospice consultation
Provide iron due to ferritin level less than 75
Will continue to follow pending results
Consultation
Order
Date of Consultation: 09/18/23
Requesting Provider: Hospitalist involuntary movements
Reason for Consult:
Subjective/Objective
Subjective Data
Date of Service: September 18, 2023
Adapted from consultation performed by my former coworker and esteemed colleague June 2017:
History of Present Illness:
This is a 77 year old female who has presented to the hospital with confusion and memory loss. Patient's symptoms began yesterday while at home talking with her daughter around 1600. Per review of the ER records, patient's symptoms resolved within 1
hour. This was a witnessed event so last known normal was immediately prior to the event occurring. She complains of only associated symptom of a headache. She took Tylenol without any relief. She denies associated vision changes, speech
difficulty, focal weakness or numbness. She currently only complains of a headache /. Patient tells me she had a cardiac procedure earlier this year and was taken off anticoagulation due to GIB. She is compliant with her other medications. She
has been to for several episodes in the past 04-09-15, 04-10-15, 11-01-15 and 09-21-16 with garbled speech and headache which resolved quickly and was determined to be a TIA versus complicated migraine. The episode 09-21-16 she was transferred to
[facility] for further management but patient states they did not do any acute intervention there. She denies any residual deficits from her prior TIA's.
77 year-old female with a history of GI bleed and intraparenchymal hemorrhage admitted with an episode of confusion with memory loss associated with severe headache that resolved within one hour. She continued to complain of headache this morning
and then developed abrupt onset of LUE weakness followed by flexion in the LUE with confusion, severe agitation requiring Ativan and nonsensical speech. A stroke alert was called for these symptoms. A code purple was called in CT as the patient
was attempting to climb out of bed. A HCT was negative for any evidence of bleed, and a CTA was negative for any large vessel occlusion (so she is not a candidate for IAT).
She is not a candidate for tPA as she has a history of an intraparenchymal hemorrhage in September 2016. Her exam is limited given her agitation at the start of the stroke alert and now s/p Ativan administration but appears to be nonfocal beyond her
nonsensical speech. Initial HCT was suggestive of an acute/subacute L parietal stroke. For now, continue ASA and switch to Plavix if MRI brain shows evidence of stroke.
This episode of LUE weakness/flexion followed by agitation may be due to seizure--will check an EEG today. Would also consider headache prophylaxis, as she has a history of prior episodes of confusion, garbled speech and memory loss with headache
c/w complicated headache.
~~~~
Subsequently, patient underwent evaluation which demonstrated diffuse slowing.
Patient then returned to this hospital to undergo a right reverse total shoulder arthroplasty. The patient underwent the procedure what was described as a respiratory arrest according to medical records which responded to oxygen provision the
patient subsequently was described as having involuntary movements for which this consultation was placed. Is not clear at this time when there was involuntary movements began.
The patient's medical history is entirely obtained after review of the patient's medical records and discussion with professional medical care providers. There are no known modifying factors. No known associated symptoms.
Objective Data
Vital Signs
Temp Pulse Resp BP Pulse Ox
37.1 C 77 24 130/92 95
09/18/23 08:35 09/18/23 08:13 09/18/23 08:35 09/18/23 08:13 09/18/23 08:35
Sodium 132 mmol/L (135-145) L 09/18/23 06:49
Potassium 5.6 mmol/L (3.5-5.1) H 09/18/23 06:49
BUN 57 mg/dl (7-17) H 09/18/23 06:49
Glucose 212 mg/dl (70-99) H 09/18/23 06:49
Calcium 8.9 mg/dl (8.4-10.2) 09/18/23 06:49
Wai-G-Ykqpfreptju Pept 7910 pg/ml 09/16/23 13:36
Patient Allergies
adhesive Allergy (Verified 09/16/23 06:56)
Unknown
amiodarone Allergy (Verified 09/16/23 06:56)
Unknown
cephalexin [From Keflex] Allergy (Verified 09/18/23 09:41)
tolerated ceftriaxone,cefazolin,augmentin,[id number]
latex Allergy (Verified 09/16/23 06:56)
Unknown
prochlorperazine [From Compazine] Allergy (Verified 09/16/23 06:56)
Unknown
prochlorperazine edisylate [From Compazine] Allergy (Verified 09/16/23 06:56)
Unknown
prochlorperazine maleate [From Compazine] Allergy (Verified 09/16/23 06:56)
Unknown
Sulfa (Sulfonamide Antibiotics) Allergy (Verified 09/16/23 06:56)
Unknown
sulfasalazine Allergy (Verified 09/16/23 06:56)
pt states gives her a headache
Modified [place] Score (MRS)
-
MRS Score:
Review of Systems
-
Unable to obtain full review of systems at this time due to: Dementia and Lethargy
History Source: Patient
All other systems: Reviewed and negative
Physical Exam
-
General: No Apparent Distress, Older than Stated Age and Wearing Oxygen
Eyes: OU Absent Papilledema, Round OU, [place] Conjunctivae and No Ptosis
HEENT: Anicteric and Moist Mucous Membranes
Neck: Full Range of Motion
Respiratory: No Dyspnea
Cardiac: No JVD
GI: Non-distended
Skin: Unremarkable
Extremities: No Clubbing, No Cyanosis, No Edema and Other (Right upper extremity in sling)
Psych: Unable to Assess
Extended Neurological Exam
Mood & Affect: Unable to Assess
Attention Span & Concentration: Lethargic and Unresponsive to Verbal Stimuli; Negative Awake, Alert, Interactive or Unresponsive to Physical Stimuli
Memory: Unable to Assess
Tremor: Other (Irregular mouth and jaw, nearly continuously of medium amplitude)
Involuntary Movement: Other (Left greater than right upper extremity and left lower extremity irregular movements of less than 1 second duration irregularly slightly proximally greater than distally, not synkinetic with facial movements)
Speech: Other (Yelling with pain stimulation, otherwise mute)
Cranial Nerve II: Left Eye: Pupillary Reactivity Unremarkable, Pupillary Size Unremarkable and Unable to Assess Visual Causey
Cranial Nerve II: Right Eye: Pupillary Reactivity Unremarkable, Pupillary Size Unremarkable and Unable to Assess Visual Causey
Cranial Nerves III, IV, : Extraocular Movement: Grossly Intact and Unable to Assess (Directly)
Cranial Nerve V: Facial Sensation: Unable to Assess
Cranial Nerve VII: Facial Symmetry: Normal Facial Symmetry
Cranial Nerve VIII: Hearing: Unable to Assess
Cranial Nerves IX, X: Palate Movement: Unable to Assess
Cranial Nerve XI: Shoulder Shrug: Unable to Assess
Cranial Nerve XII: Tongue Protusion: Unable to Assess
Muscle Strength, Overall: Unable to Assess
Muscle Bulk & Tone: Bulk Unremarkable and Tone Unremarkable
Pronator Drift: Unable to Assess
Deep Tendon Reflexes: Trace Throughout
Cold Sensation: Unable to Assess
Vibration Sensation: Unable to Assess
Touch Sensation: Withdrawal to Pain (In bilateral lower extremities, mildly)
Coordination: Unable to Assess
Babinski Sign: Absent Bilaterally
Gait & Station: Unable to Assess
Data Reviewed
-
EEG: Pending
Labs: Report Reviewed
Reviewed with: Physician and Nurse
Old Records: Summarized
Medications
-
Active Medications
Generic Name Dose Route Start Last Admin
Trade Name Freq PRN Reason Stop Dose Admin
Acetaminophen 500 mg 09/16/23 13:00 09/18/23 09:07
Acetaminophen 500 Mg Tablet PO 10/14/23 12:59 Not Given
QID SAMEER
Al Hydrox/Mg Hydrox/Simethicone 30 ml 09/16/23 08:50
Mag/Al/Simethicone Suspension 30 Ml Cup PO 10/14/23 08:49
Q4HPRN PRN
indigestion
Albuterol 1 puff 09/16/23 08:50
Albuterol Hfa [90 Mcg/Dose] Inhaler INH 10/14/23 08:49
R Q6HPRN PRN
dyspnea
Protocol
Albuterol Sulfate 2.5 mg 09/16/23 12:50
Albuterol Nebs 2.5 Mg/3 Ml Ampul INH 10/14/23 12:49
R Q4HPRN PRN
SOB, COUGH, WHEEZE
Protocol
Alprazolam 0.25 mg 09/16/23 08:50 09/18/23 01:07
Alprazolam 0.25 Mg Tablet PO 10/14/23 08:49 0.25 mg
HS PRN Administration
anxiety
Aspirin 325 mg 09/16/23 18:00 09/18/23 09:07
Aspirin 325 Mg Tablet PO 10/14/23 17:59 Not Given
DAILY SAMEER
Dextrose 12.5 grams 09/16/23 08:50
Dextrose 50% (0.5 Grams/Ml) 50 Ml Syringe IV 10/14/23 08:49
[id number] PRN
hypoglycemia
Protocol
Docusate Sodium 100 mg 09/16/23 20:00 09/18/23 08:14
Docusate Sodium 100 Mg Capsule PO 10/14/23 19:59 Not Given
BID SAMEER
Furosemide 40 mg 09/16/23 08:50 09/18/23 09:08
Furosemide 40 Mg Tablet PO 10/14/23 08:49 Not Given
DAILY@0830 SAMEER
Gabapentin 300 mg 09/16/23 08:50 09/18/23 09:08
Gabapentin 300 Mg Capsule PO 10/14/23 08:49 Not Given
DAILY@0830 SAMEER
Gabapentin 300 mg 09/16/23 20:30 09/17/23 21:03
Gabapentin 300 Mg Capsule PO 10/14/23 20:29 300 mg
DAILY@2030 SAMEER Administration
Glimepiride 2 mg 09/17/23 08:30
Glimepiride 2 Mg Tablet PO 10/15/23 08:29
DAILY@0830 SAMEER
Glucagon 1 mg 09/16/23 08:50
Glucagon 1 Mg Vial IM 10/14/23 08:49
PRN PRN
hypoglycemia
Protocol
Sodium Bicarbonate 75 meq/ 1,075 mls @ 75 mls/hr 09/18/23 09:30 09/18/23 10:53
Sodium Chloride IV 09/18/23 23:49 1,075 mls
.[id number] SAMEER Administration
Sodium Chloride 250 mls @ 125 mls/hr 09/18/23 10:58
Nss IV 09/18/23 12:57
BOLUS ONE
Insulin Aspart 0 units 09/16/23 11:30 09/17/23 17:12
Insulin Aspart Moderate Resistance 300 Units/3 Ml Pen.Injctr SC 10/14/23 11:29 1 units
AC SAMEER Administration
Protocol
Levothyroxine Sodium 112 mcg 09/17/23 06:30 09/18/23 09:07
Levothyroxine 112 Mcg Tablet PO 10/15/23 06:29 Not Given
DAILY@0630 SAMEER
Magnesium Hydroxide 30 ml 09/16/23 08:50
Milk Of Magnesia 30 Ml Cup PO 10/14/23 08:49
DAILYPRN PRN
constipation
Metoprolol Succinate 25 mg 09/16/23 08:50 09/18/23 09:08
Metoprolol 25 Mg Extended Release Tablet PO 10/14/23 08:49 Not Given
DAILY@0830 SAMEER
Midodrine 5 mg 09/16/23 13:00 09/18/23 08:13
Midodrine 5 Mg Tablet PO 10/14/23 12:59 Not Given
TID@0800,1300,1800 SAMEER
Ondansetron HCl 4 mg 09/16/23 08:50
Ondansetron 4 Mg/2 Ml Vial IV 10/14/23 08:49
Q6HPRN PRN
nausea and vomiting
Oxycodone HCl 2.5 mg 09/16/23 08:50
Oxycodone 5 Mg Regular Release Tablet PO 09/30/23 08:49
Q4HPRN PRN
mild pain
Oxycodone HCl 5 mg 09/16/23 08:50 09/17/23 04:07
Oxycodone 5 Mg Regular Release Tablet PO 09/30/23 08:49 5 mg
Q4HPRN PRN Administration
moderate pain
Oxycodone HCl 10 mg 09/17/23 15:06 09/17/23 16:32
Oxycodone 10 Mg Regular Release Tablet PO 10/01/23 15:05 10 mg
Q4HPRN PRN Administration
severe pain
Pantoprazole Sodium 40 mg 09/16/23 08:50 09/18/23 09:08
Pantoprazole 40 Mg Delayed Release Tablet PO 10/14/23 08:49 Not Given
BID@0830,2030 SAMEER
Rosuvastatin Calcium 20 mg 09/16/23 20:30 09/17/23 21:03
Rosuvastatin (Crestor) 20 Mg Tablet PO 10/14/23 20:29 20 mg
DAILY@2029 SAMEER Administration
Sertraline HCl 50 mg 09/16/23 08:50 09/18/23 09:08
Sertraline 50 Mg Tablet PO 10/14/23 08:49 Not Given
DAILY@829 SAMEER
Sodium Chloride 0 flush 09/16/23 07:00
Sodium Chloride 0.9% (Flush) Syringe IV 10/14/23 06:59
PER PROTOCOL SAMEER
Tamsulosin HCl 0.4 mg 09/16/23 08:50
Tamsulosin 0.4 Mg Capsule PO 10/14/23 08:49
DAILYPRN PRN
bladder scan volume > 400 mL
Home Medications
Medication Instructions Recorded
gabapentin 300 mg capsule 300 mg PO DAILY@829 Pain 09/23/22
glimepiride 2 mg tablet 2 mg PO DAILY@829 Diabetes 09/23/22
levothyroxine 112 mcg tablet 112 mcg PO DAILY@629 Thyroid 09/23/22
pantoprazole 40 mg tablet,delayed 40 mg PO BID@09/23/22
release Gastrointestinal issue
rosuvastatin 20 mg tablet 20 mg PO DAILY@2029 High 09/23/22
cholesterol
sertraline 50 mg tablet 50 mg PO DAILY@829 Mental Health 09/23/22
vibegron 75 mg tablet (Gemtesa) 75 mg PO DAILY@829 Urinary Issue 01/04/23
gabapentin 300 mg capsule 600 mg PO DAILY@2029 Pain 08/16/23
acetaminophen 325 mg tablet 650 mg PO Q4H PRN mild 09/02/23
(Tylenol) pain/fever>100.4
acetaminophen 500 mg tablet 1,000 mg PO Q12H@829,2029 Pain 09/02/23
(Pharbetol)
albuterol sulfate 90 mcg/actuation 1 puff inhalation R Q6HPRN PRN 09/02/23
aerosol inhaler dyspnea
benzocaine 20 %-resorcinol 3 % 1 applic topical BIDPRN PRN apply 09/02/23
topical cream (Vagicaine) to vaginal area
bisacodyl 10 mg rectal suppository 10 mg MD DAILY PRN q 3 days when 09/02/23
no BM and MOM/lactulose ineffective
furosemide 40 mg tablet 40 mg PO DAILY@0830 Fluid 09/02/23
Retention/Swelling
magnesium hydroxide 400 mg/5 mL 30 ml PO HSPRN PRN constipation 09/02/23
oral suspension (Milk of Magnesia)
methenamine hippurate 1 gram tablet 1 g PO Q12H@0830,2030 Infection 09/02/23
metoprolol succinate 25 mg 25 mg PO DAILY@0830 HTN 09/02/23
tablet,extended release 24 hr
(Toprol XL)
midodrine 10 mg tablet 5 mg PO TID PRN if SBP<100 or 09/02/23
complaints of dizziness
multivitamin 1 tab PO DAILY@0830 Supplement 09/02/23
alprazolam 0.25 mg tablet 0.25 mg PO HS PRN anxiety #10 tabs 09/04/23
oxycodone 5 mg capsule 5 mg PO BID PRN Pain #14 caps 09/04/23
chlorhexidine gluconate 4 % 1 applic topical . DIRECTED Skin 09/11/23
topical liquid (Hibiclens) Issues
docusate sodium 100 mg capsule 200 mg PO DAILY Constipation 09/11/23
(Colace)
mupirocin 2 % topical ointment 1 applic topical BID Skin Issues 09/11/23
Past History
Past History
ED Past Medical History: Arrthythmia (Atrial fib), Asthma, CAD, Cancer (Breast), CHF, COPD, CVA (Intracranial hemorrhage 2016, right occipital lobe infarct 2012, right pontine ischemic stroke 2016), GERD, HTN, Hypercholesterolemia, NIDDM,
Hypothyroidism, Psychiatric (Anxiety, Depression, panic attacks), Other (Headaches, Slight Dementia, PNA, RBBB, Rheumatic heart disease, Hep C, GI bleed, UTI, Fatty liver, anemia) and Other (Irritable bowel syndrome, obstructive sleep apnea,
migraine); Negative Renal failure (CKD 3 AA)
ED Past Surgical History: None, Cardiac (bypass, Ablation), Cholecystectomy, Gynecological (Ovarian cyst, Uterine fibroids, Hysterectomy), Orthopedic (Bilateral hip replacements), Tonsilectomy, Urological (Nephrectomy) and Other (Rhinoplasty)
Social History
Tobacco: Non-smoker
Alcohol: Occasional
Drug: None
Personal:
Living: with family (daughter)
Employment: Retired
Family History
Family History: Hypertension
[2023-09-18 11:01] LABS: Hematocrit 32.1 % (37.0-47.0); Hemoglobin 9.7 g/dL (12.0-16.0); Mean Corp Hgb Conc. 30.2 g/dL (33.0-37.0); Mean Corpuscular Hgb 22.8 pg (27.0-31.0); Mean Corpuscular Volume 75.5 fL (81.0-99.0); Mean Platelet Volume 9.6 fL (7.4-10.4); Platelet Count 355 10^3/uL (130-400); Red Blood Cell Count 4.25 10^6/uL (4.20-5.40); White Blood Cell Count 16.8 10^3/uL (4.8-10.8)
[2023-09-18] MEDS: NOVOLOG FLEXPEN-MODERATE RESISTANCE SC ×2 (11:09→12:40)
[2023-09-18] MEDS: NSS 250 IV (11:35)
--- NOTE | 2023-09-18 11:52 | W.PN.CARDCBS ---
Addendum entered and electronically signed by Zaire Nuñez MD 09/18/23 16:41:
History reviewed, patient febrile, obtunded, troponin up to 3. Patient poorly responsive
allergies: Amiodarone, cephalosporins, Compazine, sulfa
Cardiac outpatient meds: Amlodipine 2.5 mg daily, aspirin 81 mg a day, furosemide 40 mg a day, gabapentin, Gemtesa, glimepiride, levothyroxine, losartan 50 mg a day, metoprolol ER 50 mg a day, rosuvastatin 20 mg a day, sertraline 50 mg daily,
trazodone 300 mg a day,
Current medications: Furosemide 40 mg a day by mouth, gabapentin, levothyroxine, metoprolol ER 25 mg a day, Protonix, rosuvastatin 20 mg a day, sertraline 50 mg daily, aspirin 325 mg daily, midodrine 5 mg 3 times daily, glimepiride 2 mg daily,
PMH/PSH/FH/SH: Reviewed
Review of systems: Not obtainable
90/76, 81/61, pulse 98, respiratory 26, temp is 38
Obtunded, tremulous on left, sling on right, head neck exam unremarkable, cardiac exam regular rate and rhythm, no obvious murmurs, abdomen seems tender, extremities without edema, neuro, not readily performed, obtunded, distal pulses palpable
EEG: Diffuse slowing, no obvious seizures
Head CT today, no acute findings, mild white matter hypoattenuation
Chest x-ray September 16: Low lung volumes, no obvious abnormality
ECG: Suspect lead reversal, currently sinus rhythm
White count 16.8, hemoglobin 9.7, MCV 75, 7.3 //20, potassium 5.6, creatinine 2.8, creatinine had been 1.8, troponin 3.07, prior to this had been flat proBNP was 7900 on September 16,
EKG pending
Last echo: August 2023
Impression:
Clinical sepsis, patient currently on ceftriaxone
Toxic metabolic encephalopathy
Paroxysmal atrial fibrillation, not on anticoagulation
Status post right reverse total shoulder arthroplasty
History of respiratory insufficiency
History of CABG
Elevated troponin
History of Watchman
History of HFpEF
History of CVA
CKD
COPD
Cognitive impairment
Cirrhosis
Diabetes
Plan:
Cardiac status is largely unchanged, her troponin has risen to 3, but I do not feel this is primarily a cardiac issue but rather a type II myocardial event and this does not tire changer aircraft in my opinion. Therapy should be directed towards
underlying conditions, suspected infection, etc.
Patient now on broad-spectrum antibiotic.
Prognosis seems guarded given the multitude of comorbidities.
Continue supportive care, consider reassessment of goals of care and level of care based on clinical course.
Original Note:
Today's Communication / Plan
-
Now febrile, hypotensive and AMS/obtunded
Blood cultures pending
IVF resuscitation
Hold Lopressor and Lasix due to hypotension
HCT negative for stroke
EEG pending
Agree with moving to higher level of care
Impression / Plan
-
PCP: Dr Blayne Cheney
Final Cleaner: Dr. Ronny Raines
Impression:
Acute hypoxic respiratory failure with respiratory arrest in PACU post-op shoulder surgery 09/16/23
s/p Elective right reverse TSA 09/16/23
h/o fall and right humerus fracture 08/25/23
h/o acute hypoxemic respiratory insufficiency and somnolence likely due to opiates, gabapentin, sertraline and alprazolam prior to admission 09/02/23
Elevated Troponin
CAD s/p CABG WOOD-LAD, SVG-OM and MAZE 2011
Paroxysmal Afib
Not chronically anticoagulated due to Watchman in place
h/o Watchman placement 2016
very small leak (<5mm) by HUSAM 01/01/17 and 07/06/17, but this size leak is acceptable for this device.
h/o CVA 06/2017
CKD 4
Chronic HFpEF
cRBBB
HTN
COPD
Dementia/cognitive dysfunction
Anemia of Chronic Disease
Hull cirrhosis
DM-II with Neuropathy
Hypothyroidism
Echo 05/12/2022:�normal left ventricular size and function with ejection fraction of 55 to 60% and mild LVH.� Mild mitral regurgitation.� Mild tricuspid insufficiency with mildly elevated pulmonary pressures estimated at 40 to 45 mmHg.� No
significant change from September 20, 2021
Echo 01/06/2023: Ejection fraction 50 to 55%, dilated hypokinetic right ventricle
Echo 08/17/23: EF 50% with moderate TR, pulmonary artery pressure 32 mmHg, severely dilated and hypokinetic right ventricle flattened septum in diastole consistent with RV pressure overload and no significant change from December 2022.
Plan:
-Presented for elective right reverse TSA 09/16/23 and developed acute hypoxic respiratory failure with respiratory arrest in PACU post-op shoulder surgery
-Stroke alert called 09/18/2023 in am for c/o headache, confusion, Lt sided weakness and nonsensical speech. HCT no acute abnormalities. Neurology following and EEG pending
-Pt now febrile with AMS and responds to pain but not to verbal commands. Suspect TME secondary to possible sepsis. Blood cultures pending. C-diff is negative
-Now hypotensive, Lasix and Toprol on hold. BP some improvement with fluid bolus.
-Abnormal Troponin continues to trend upward 3.070. Repeat pending. Trend to peak. Concern for NSTEMI vs Type 2 WA. Repeat ECG today pending. T/c heparin gtt
-Would consider repeat echo given Troponin continues to trend up
-History of paroxysmal Afib. ECG from 09/16/23 read as Afib but was in sinus rhythm 09/17, now seems to be back in Afib. Repeat ECG pending
-Patient is s/p Watchman in 2016 and has a known very small leak surrounding implanted device, but this has been felt to be acceptable. Patient had a CVA 06/2017 and repeat HUSAM showed a stable very small leak and no changes proposed. Neurology felt
at that time that TIA/CVA events in the setting of DAISY occlusion device felt to be much smaller and less devastating types of events.
-Hgb stable at 9.7 w/ h/o chronic anemia.
-ERIKA with known baseline CKD 4 (baseline creat 1.8-19) now with jump of creat from 1.8->2.8 09/18/2023. Would give gentle diuresis
[facility] data 09/17/2023:
Patient had a respiratory arrest event in PACU yesterday and now her Troponin is elevated so cardiology has been consulted. Patient fell and fractured her right humerus 08/25/23 and was sent to [facility] for rehab. Patient was sent from [facility] to for
respiratory distress and somnolence on 09/02/23. That event was thought to be from recent initiation of pain meds for her fracture. Patient was seen in the cardiology office 09/09/23 for preoperative cardiovascular evaluation for elective right
reverse TSA. Patient reported feeling well at that time and denied any chest pain or SOB. Patient had an up to date echo from 08/17/23 that showed EF 50% and a dilated and hypokinetic RV that was unchanged from echo 12/2022. Patient had an admission
for PNA, CHF and ERIKA 08/16/23 until 08/21/23 and discharge weight was 189 lbs. Patient says she felt well leading up to surgery yesterday and that she does not recall feeling SOB post-op. Nursing and attending notes reviewed, patient was noted to be
acutely hypoxic and apneic upon arrival to PACU and was ventilated and then given Narcan, flumazenil and sugammadex with improvement in oxygenation and respirations. ECG at that time looked like Afib, but now back in SR. Initial Troponin was 0.164
and now up to 0.888. No chest pain.
-Patient with acute hypoxic respiratory failure and respiratory arrest after right shoulder surgery yesterday that improved with Narcan, flumazenil and sugammadex without recurrence. Patient had a similar hypoxic event when she was sent from [facility] to
ER 09/02/23 thought to be related to pain meds and BZDs.
Progress Note - Final Cleaner
Subjective
Date of Service: September 18, 2023
Patient seen and examined. Patient lying in bed. Patient responds to pain only and is warm to touch
Objective
Labs:
09/18/23 10:47
Labs
Hgb 9.7 g/dL (12.0-16.0) L 09/18/23 10:47
Hct 32.1 % (37.0-47.0) L 09/18/23 10:47
Plt Count 355 10^3/uL (130-400) 09/18/23 10:47
Sodium 132 mmol/L (135-145) L 09/18/23 06:49
Potassium 5.6 mmol/L (3.5-5.1) H 09/18/23 06:49
BUN 57 mg/dl (7-17) H 09/18/23 06:49
Creatinine 2.8 mg/dL (0.6-1.0) H 09/18/23 06:49
Glucose 212 mg/dl (70-99) H 09/18/23 06:49
Troponins
09/16/23 09/16/23 09/17/23
13:36 19:10 03:45
Troponin I 0.164 H* 0.401 H* D 0.888 H*
09/17/23 09/17/23 09/18/23
10:10 16:21 06:49
Troponin I 1.080 H* 1.060 H* 1.240 H*
09/18/23
10:47
Troponin I 3.070 H* D
Vital Signs and I&O:
Vital Signs
Temp Pulse Resp BP Pulse Ox
97.1 F 95 16 81/61 93
09/18/23 11:00 09/18/23 11:00 09/18/23 11:00 09/18/23 11:00 09/18/23 11:00
Vital Signs
Temp Pulse Resp BP Pulse Ox
97.1 F 95 16 81/61 93
09/18/23 11:00 09/18/23 11:00 09/18/23 11:00 09/18/23 11:00 09/18/23 11:00
Intake & Output
09/16/23 09/17/23 09/18/23 09/19/23
06:59 06:59 06:59 06:59
Intake Total 198 / 198 720 / 720
Output Total 1580 / 1580 700 / 700
Balance -1382 / -1382
Physical Exam
Physical Exam
GEN: lying in bed, appears ill, responds to pain only
HEENT: supple, anicteric, mmm
LUNGS:Difficult exam, CTA anteriorly, no wheezes/rales
CV: Irreg irreg, S1/S2, no murmur, rub or gallop
ABD: soft, BS+, NT/ND
EXT: No edema, right arm in sling, rt shoulder dressing c/d/i
NEURO: obtunded and responds to pain only
SKIN: No rash, skin hot to touch
--- NOTE | 2023-09-18 12:10 | PTCARENOTE ---
Patient remains very lethargic with irregular jerking movements of left arm and face. Unable to take meds this morning due to lethargy. BP 81/61 at 1100 vitals, 250mL bolus NSS given per MD. Pt went for stat head CT and order for EEG placed. UA
sent. EKG done, will transfer to IMU per MD order.
[2023-09-18 12:19] LABS: Glucose - Point of Care 189 mg/dl (70-99)
[2023-09-18 13:10] LABS: Urine Albumin 2+ (Neg - Trace); Urine Bilirubin Negative (Negative); Urine Character Very Cloudy (Clear); Urine Color Yellow; Urine Glucose Negative (Negative); Urine Ketone Negative (Negative); Urine Leukocyte 2+ (Negative); Urine Nitrite Negative (Negative); Urine Occult Blood 3+ (Negative); Urine Urobilinogen Negative (Neg - 1+)
[2023-09-18 13:17] LABS: NT-proBNP 26200 pg/ml
[2023-09-18 13:41] LABS: Urine Mucus Few
[2023-09-18 13:42] LABS: Urine Squamous Cell >30 /LPF (Few)
[2023-09-18 13:43] LABS: Urine White Cell >100 /HPF (0-5)
[2023-09-18 13:44] LABS: Urine Bacteria Few (Negative); Urine Yeast Moderate (Negative)
--- NOTE | 2023-09-18 15:19 | EEG.RPT ---
Electroencephalogram Report
Recording
Date of EE09/18/23
Type of EEG: Routine
Length of EEG recordin minutes
Done with Video Recording: Yes
Patient Status: Inpatient
Recording Conditions: Awake and Drowsy
Hyperventilation Performed: No
Photic Stimulation Performed: Yes
Report
LESS THAN 1 HOUR REPORT
EEG INTERPRETATION:
Severely abnormal study for age based on bursts of generalizing periodic rhythmic delta activity which was frontally predominant episodically during the study.
CLINICAL CORRELATION:
Although normative values not been established for a person of this advanced age, the episodic rhythmic frontal slowing suggests severe bihemispheric cortical dysfunction which may be secondary to metabolic disturbance.
Clinical correlation is advised.
METHODS:
A 21 channel digitized electroencephalogram (EEG) was performed at the bedside. The 10/20 international system of electrode placement was used with ECG and lateral/vertical eye movements recorded.
ELECTROENCEPHALOGRAPHER IMPRESSION(S):
Quality of study
Good
Background
Medium amplitude
Poor anterior-posterior voltage gradient differentiation
Theta, usually delta, maximal background demonstrated
Sleep
Drowsiness present
Hyperventilation
Not performed
Photic Stimulation
Failed to produce activation of the record
ECG
Normal rhythm
Abnormal Activity
Abundant periodic generalizing rhythmic delta activity of 1/s frequency throughout the study
--- NOTE | 2023-09-18 16:00 | PTCARENOTE ---
Patient received from 3W. Patient lethargic but response to tactile stimuli such as turning. AAO most to self at best, VSS. Patient was taken for Head CT and EEG ordered. Patient currently with tate catheter and rectal trumpet. Patient with
history of broken left wrist and is bent back up. IVF continued from 3W. Call macias in reach.
--- NOTE | 2023-09-18 17:03 | CON.MD ---
Consultation - Medical
-
Impression:
ERIKA
Sepsis
Hyperkalemia
Metabolic Acidosis (gapped)
History of acute kidney injury requiring dialysis for 2 months in 2019
Troponin Leak
Clinical sepsis, patient currently on ceftriaxone
Toxic metabolic encephalopathy
Paroxysmal atrial fibrillation, not on anticoagulation/watchman
Status post right reverse total shoulder arthroplasty
History of respiratory insufficiency
History of CABG
Elevated troponin
History of Watchman
History of HFpEF
History of CVA
CKD 4 (2.2)
COPD
Cognitive impairment
Cirrhosis
Diabetes
Diabetic neuropathy
Hx of RONDA not on CPAP
Hypothyroidism
h/o recovered Hep C
h/o nephrolithiasis
Plan:
ERIKA:(obstruction vs pre renal)
-Hemodynamic compromise in setting of evolving sepsis
-placed tate
-hemodynamic support, midodrine and alkaline ivfs,need to keep MAP > 65, may require pressor support
-lasix held, no chf on CXR
-antibiotics for presumed sepsis
-Discussed case with daughter who said they would want dialysis if needed
[2023-09-18 17:19] LABS: Blood Urea Nitrogen 61 mg/dl (7-17); Calcium 8.6 mg/dl (8.4-10.2); Carbon Dioxide 23 mmol/L (22-30); Chloride 95 mmol/L (98-107); Estimated Creatinine Clearance 15 ml/min; Glucose 207 mg/dl (70-99); Potassium 5.5 mmol/L (3.5-5.1); Sodium 130 mmol/L (135-145); eGFR 14.29
[2023-09-18 17:24] LABS: Glucose - Point of Care 203 mg/dl (70-99)
[2023-09-18] MEDS: STERILE WATER FOR INJECTION 10 ML IV (17:32)
[2023-09-18] MEDS: ROCEPHIN 1000 MG IV (17:32)
[2023-09-18] MEDS: NOVOLOG FLEXPEN-MODERATE RESISTANCE 3 UNITS SC (17:32)
[2023-09-18] MEDS: CRESTOR PO (19:28)
[2023-09-18] MEDS: TYLENOL/FEVERALL 650 MG RECTAL (19:51)
[2023-09-18 22:26] LABS: Glucose - Point of Care 192 mg/dl (70-99)
[2023-09-19] VITALS (71 sets, daily range): BP systolic 60–163; BP diastolic 18–134; BMI 24.1
--- NOTE | 2023-09-19 00:14 | PTCARENOTE ---
Patient left wrist IV infiltrated- TORQUE TESTER made aware and ordered extravasation protocol. IV team to bedside to administer.
[2023-09-19] MEDS: HYLENEX 30 UNITS SC ×5 (00:19)
--- NOTE | 2023-09-19 00:26 | VATNOTE ---
VAT paged to restart PIV as PIV in hand infiltrated. Hand with +3 edema. PIV restarted in forearm. Primary RN at bedside and contacted MANAGEMENT DEPARTMENT CHAIR for guidance on treating infiltrate as it was bicarb that was infusing. Antidote ordered by MANAGEMENT DEPARTMENT CHAIR and administered
by this VAT RN. Hand elevated on pillows. Will continue to monitor.
[2023-09-19] MEDS: SYNTHROID PO (03:47)
[2023-09-19 04:01] LABS: Blood Urea Nitrogen 67 mg/dl (7-17); Calcium 8.4 mg/dl (8.4-10.2); Carbon Dioxide 19 mmol/L (22-30); Chloride 99 mmol/L (98-107); Estimated Creatinine Clearance 17 ml/min; Glucose 169 mg/dl (70-99); Potassium 5.2 mmol/L (3.5-5.1); Sodium 132 mmol/L (135-145); eGFR 16.87
--- NOTE | 2023-09-19 07:14 | PTCARENOTE ---
Patient agitated, anxious, and uncooperative with care. Patient yelling at staff when touched. Emotional support provided.
[2023-09-19] MEDS: NOVOLOG FLEXPEN-MODERATE RESISTANCE SC ×3 (07:55→17:21)
[2023-09-19 08:07] LABS: Glucose - Point of Care 145 mg/dl (70-99)
[2023-09-19] MEDS: ROXICODONE 5 MG PO (08:38)
[2023-09-19] MEDS: TYLENOL 500 MG PO (08:39)
[2023-09-19] MEDS: ProAmatine 5 MG PO (08:40)
[2023-09-19] MEDS: LASIX 40 MG PO (08:41)
[2023-09-19] MEDS: ZOLOFT 50 MG PO (08:41)
[2023-09-19] MEDS: NEURONTIN 300 MG PO (08:41)
[2023-09-19] MEDS: TOPROL XL 25 MG PO (08:42)
[2023-09-19] MEDS: ASPIRIN 325 MG PO (08:42)
--- NOTE | 2023-09-19 08:43 | W.PN.HOSP.TC ---
Today's Communication/Plan
-
Add vancomycin and Flagyl pending culture data. Continue with ceftriaxone. Follow urine culture data.
Continue with midodrine. Vasopressors as needed to keep MAP more than 65.
Speech eval and start on a diet if safe to swallow
Follow renal function.
Assessment / Plan
Assessment / Plan
Acute hypoxic respiratory failure with respiratory arrest as witnessed by ORACLE ARCHITECT-improved with a combination of Narcan/flumazenil/sugammadex in PACU.� Patient without any acute respiratory distress immediately in PACU and remained so now. She was
off of oxygen. She was without any respiratory complaints. Suspect related to medication doubt underlying cardiopulmonary acute issues.
Chest x-ray reviewed - limited but no focal dz or CHF. ABG showed acute hypercapnia possibly secondary to respiratory depression and arrest.
Pulmonary inupt noted
Change in mental status-patient with decreased responsiveness 09/18. Suspect TME
Clinically improved-patient more awake and more alert.
Clinical concern for sepsis with fever and leukocytosis. Ongoing evaluation to rule out UTI. Urine cultures pending. Urinalysis strongly positive. She had a significant urinary retention. Chest x-ray was limited but no obvious pneumonia. Await
blood cultures. She was initiated on ceftriaxone and she was already on clindamycin for possible prophylaxis. Now that clindamycin is discontinued we will put on vancomycin 1 g positive coverage and Flagyl for anaerobes till culture data is back.
Improved hemodynamics today. Continue with midodrine. If needed would use vasopressors to keep MAP more than 65.
No hypercapnia.
Focal jerking of left upper extremity which looks myoclonic but isolated to the limb. May be encephalopathy related. But in view of known atrial fibrillation and not on anticoagulation got a CT head -no acute events. EEG report noted -no mention
of epileptiform activity
Elevated troponins -suspect NSTEMI --without chest pain. EKG on adx showed atrial fibrillation with right bundle branch block. Patient known to have paroxysmal atrial fibrillation. Troponin peaked 9.3 -trending down now. Cardiology following.
ERIKA on Chronic kidney disease stage IV-creatinine at her baseline.
Patient was retaining urine as high as 1580 cc and now has a Bo catheter. Unclear if acute elevation is secondary to retention. Continue to follow.
Improved acidosis and hyperkalemia.
Appreciate nephrology input. Continue with IV fluids per nephrology. Currently on KVO off IV fluids
S/p elective right reverse TSA for right humerus fracture-continue postop care per orthopedics. cw pain meds cautiously
Microcytic anemia-stable H&H compared to recent. Check iron studies and Hemoccult stools.
CAD s/p prior CABG-patient currently without chest pain.� Follow on telemetry.� Continue with her home cardiac regimen.
Paroxysmal atrial fibrillation s/p Watchman procedure-continue the beta-halima. Sinus rhythm today
Chronic heart failure with preserved EF-Elevated BNP noted -clinically compensated. Continue with home dose of Lasix as HD tolerate.
History of COPD-currently with no reactive airways.
History of obstructive sleep apnea not on CPAP
NURSING EDUCATION CONSULTANT
Total time spent on today's encounter was 52 minutes which included time spent in counseling the patient/family regarding diagnosis and treatment plan as listed above, goals of care, and symptom management. Case was discussed with nursing staff,
specialists, All labs and imaging personally reviewed by me. Remainder the time spent in detailed review of previous records, lab data, imaging, and other medical provider documentation.
Anticipated Discharge: > 48 hours
Subjective/Interval History
-
Date of Service: September 19, 2023
Patient is much more alert today.
She apparently this morning was not taking medication and applesauce was offered that she was swatting the hand of the nurse.
She keeps moaning and shouting with any movements/attempts to give her care.
To me she is alert but not conversing.
Says 'yes' 'no' and said some incomprehensible words.
Objective Data
-
Labs:
Laboratory Results
09/19/23
03:30
Sodium 132 L
Potassium 5.2 H
Chloride 99
Carbon Dioxide 19 L
BUN 67 H
Creatinine 2.7 H
Glucose 169 H
Calcium 8.4
Vital Signs:
Vital Signs
Temp Pulse Resp BP Pulse Ox
98.2 F 106 18 89/49 96
09/19/23 07:21 09/19/23 06:00 09/19/23 06:00 09/19/23 06:00 09/19/23 06:00
I&O
09/18/23 09/19/23 09/20/23
06:59 06:59 06:59
Intake Total 720 / 720 310 / 310 750 / 750
Output Total 700 / 700 500 / 500
Balance 20 / 20 310 / 310 250 / 250
Review of Systems
-
Unable to obtain full review of systems at this time due to: Other (cognitive impairment)
Physical Exam
-
General: Comfortable
HEENT: Negative Moist Mucous Membranes
Respiratory: Clear to Auscultation (anterior auscultation)
Cardiac: Regular Rhythm and S1/S2; Negative Tachycardic
GI: Soft and Normal Bowel Sounds
Neuro: Awake, Alert and Other (diffucult to assess as she doesnt follow commands); Negative Tremors (left arm jerking only when she attempts to move or do something with it;not constant)
Psych: Calm
Data Reviewed
-
Labs: Labs Reviewed by me
[2023-09-19] MEDS: PROTONIX 40 MG PO (08:44)
[2023-09-19] MEDS: NSS 1000 IV (08:48)
--- NOTE | 2023-09-19 09:05 | PTCARENOTE ---
Patient received from night clerk auditor. Patient more awake this AM and yelling out. Unable to safely take PO yesterday but will attempt again today, more so focusing on pain control. AAO most to self at best, VSS. Patient currently with tate catheter
and rectal trumpet. Patient with history of broken left wrist and is bent back up. IVF restarted NSS @ 60mL/hr. Monitoring BP. Right shoulder dressing intact with old drainage. Call macias in reach.
--- NOTE | 2023-09-19 09:24 | PHA.VAN.IN ---
Assessment
- Assessment
Renal Function: Appears elevated from baseline (baseline ~ 1.8 )
Maximum Temperature: 101.5 - 09/18/23 @19:23
Concomitant Antimicrobials: ceftriaxone, metronidazole
AUC Dosing Plan
- Empiric Dosing
Initial / Loading Dose: 1250 mg x 1 ( 16 mg/kg)
Maintenance Regimen: dose by randoms ( ERIKA on CKD)
Plan
- Plan
Monitoring: random AM 09/20/23 0600
Pharmacokinetics Vancomycin I
- -
Patient Age: 83
Patient Sex: Female
Vancomycin Day #: 1
Indication: Other
Requesting Provider: Alfonso
Pertinent Antimicrobial Allergies:
cephalexin, latex, sulfonamide antibiotics
Height / Weight:
Height 5 ft 10 in
Actual Weight 76.1 kg
Pertinent Past Medical History: CKD IV
- Vital Signs / Lab Results
Temp Pulse Resp BP Pulse Ox
98.2 F 91 18 97/53 96
09/19/23 07:21 09/19/23 08:40 09/19/23 06:00 09/19/23 08:40 09/19/23 06:00
Lab Results - Hematology
09/16/23 09/18/23 09/18/23
13:36 06:49 10:47
WBC 6.7 17.9 H 16.8 H
Lab Results - Chemistry
09/16/23 09/18/23 09/18/23
13:36 06:49 16:54
BUN 32 H 57 H 61 H
Creatinine 1.8 H 2.8 H 3.1 H
Estimated Creat Clear 25 16 15
09/19/23
03:30
BUN 67 H
Creatinine 2.7 H
Estimated Creat Clear 17
Lab Results - Urine
09/18/23
11:07
Urine Nitrite (Reflex) Negative
Leukocyte Esterase Rfl 2+ A
Urine WBC (Reflex) >100 A
Ur Squamous Epith Cells >30
Urine Bacteria (Reflex) Few A
Microbiology Results
09/18/23 01:15 C. difficile GDH Antigen & Toxins - Final
Feces/Stool Negative for toxigenic C.difficile
09/16/23 13:36 MRSA Screen - Final
Nose No Methicillin Resistant Staphylococcus aureus isolated.
[2023-09-19] MEDS: FLAGYL 500 MG 100 IV ×2 (10:13→17:20)
--- NOTE | 2023-09-19 10:33 | W.PN.CARDCBS ---
Addendum entered and electronically signed by Zaire Nuñez MD 09/19/23 17:14:
Heart rate better, rhythm intermittently sinus, to start Corby-Synephrine, discussed again with daughter
Addendum entered and electronically signed by Zaire Nuñez MD 09/19/23 13:49:
Patient developed heart rate 08/30/1930, with clinical deterioration. Will treat with dig x 1, has amiodarone allergy, no other antiarrhythmics are probably appropriate at this time. I called daughter, patient is a full code, I informed her of my
concerns about long-term prognosis and low likelihood of successful outcome following cardiac arrest, intubation, etc. prognosis is very guarded.
Original Note:
Today's Communication / Plan
-
Increase midodrine
Decrease IV fluid
Resume oral Lasix
Hold metoprolol
Consider follow-up echo
Impression / Plan
-
PCP: Dr Blayne Cheney
Case Therapist: Dr. Ronny Raines
Impression:
Acute hypoxic respiratory failure with respiratory arrest in PACU post-op shoulder surgery 09/16/23
s/p Elective right reverse TSA 09/16/23
h/o fall and right humerus fracture 08/25/23
h/o acute hypoxemic respiratory insufficiency and somnolence likely due to opiates, gabapentin, sertraline and alprazolam prior to admission 09/02/23
Elevated Troponin
CAD s/p CABG WOOD-LAD, SVG-OM and MAZE 2011
Paroxysmal Afib
Not chronically anticoagulated due to Watchman in place
h/o Watchman placement 2016
very small leak (<5mm) by HUSAM 01/01/17 and 07/06/17, but this size leak is acceptable for this device.
h/o CVA 06/2017
CKD 4
Chronic HFpEF
cRBBB
HTN
COPD
Dementia/cognitive dysfunction
Anemia of Chronic Disease
Hull cirrhosis
DM-II with Neuropathy
Hypothyroidism
Echo 05/12/2022:�normal left ventricular size and function with ejection fraction of 55 to 60% and mild LVH.� Mild mitral regurgitation.� Mild tricuspid insufficiency with mildly elevated pulmonary pressures estimated at 40 to 45 mmHg.� No
significant change from September 20, 2021
Echo 01/06/2023: Ejection fraction 50 to 55%, dilated hypokinetic right ventricle
Echo 08/17/23: EF 50% with moderate TR, pulmonary artery pressure 32 mmHg, severely dilated and hypokinetic right ventricle flattened septum in diastole consistent with RV pressure overload and no significant change from December 2022.
Plan:
Respiratory failure with component of HFpEF: Respiratory status is improved and she seems hemodynamically improved today although still with hypotension. Will increase midodrine to 10 mg 3 times daily. I am reluctant to aggressively volume replete
as her neck veins are up. Suspect total body overloaded, proBNP on the September 18 was 26,200. Will decrease IV fluid to 40 mL/h and resume oral furosemide 40 mg daily. Oxygen saturation is adequate and she does not appear to be tachypneic.
Paroxysmal atrial fibrillation: Currently in sinus rhythm, rate controlled. Metoprolol is on hold related to hypotension. Continue to hold. No anticoagulation. Watchman in place.
Non-ST segment elevation SD:Troponin has peaked at 9.4. EKG is relatively stable. Eventual restart of metoprolol. We can consider follow-up echo on Thursday. Last echo was on August 17, 2023.
Change in mental status/TME: Presumably related to sepsis, somewhat improved
Clinical sepsis: Apparently with likely UTI, defer to hospitalist
Reverse right total shoulder arthroplasty 09/16/23
ERIKA on CKD: Improving, creatinine 2.7 today
Cognitive impairments, anemia, history of CABG, all noted
HPI data 09/17/2023:
Patient had a respiratory arrest event in PACU yesterday and now her Troponin is elevated so cardiology has been consulted. Patient fell and fractured her right humerus 08/25/23 and was sent to [facility] for rehab. Patient was sent from [facility] to for
respiratory distress and somnolence on 09/02/23. That event was thought to be from recent initiation of pain meds for her fracture. Patient was seen in the cardiology office 09/09/23 for preoperative cardiovascular evaluation for elective right
reverse TSA. Patient reported feeling well at that time and denied any chest pain or SOB. Patient had an up to date echo from 08/17/23 that showed EF 50% and a dilated and hypokinetic RV that was unchanged from echo 12/2022. Patient had an admission
for PNA, CHF and ERIKA 08/16/23 until 08/21/23 and discharge weight was 189 lbs. Patient says she felt well leading up to surgery yesterday and that she does not recall feeling SOB post-op. Nursing and attending notes reviewed, patient was noted to be
acutely hypoxic and apneic upon arrival to PACU and was ventilated and then given Narcan, flumazenil and sugammadex with improvement in oxygenation and respirations. ECG at that time looked like Afib, but now back in SR. Initial Troponin was 0.164
and now up to 0.888. No chest pain.
-Patient with acute hypoxic respiratory failure and respiratory arrest after right shoulder surgery yesterday that improved with Narcan, flumazenil and sugammadex without recurrence. Patient had a similar hypoxic event when she was sent from [facility] to
ER 09/02/23 thought to be related to pain meds and BZDs.
Progress Note - Case Therapist
Subjective
Date of Service: September 19, 2023:
Resting comfortably, overall looks better, when awakened verbalizes but hard to understand, then begins to cry 'do not leave me'
Allergies: Amiodarone, cephalosporins, but tolerating ceftriaxone currently, Compazine, sulfa
Medications: Furosemide 40 mg daily on hold, gabapentin, levothyroxine 112 mcg daily, metoprolol ER 25 mg a day, pantoprazole 40 mg twice daily, rosuvastatin 20 mg daily, sertraline 50 mg a day, aspirin 325 mg a day, midodrine 5 mg 3 times daily,
glimepiride 2 mg daily, ceftriaxone, Flagyl, vancomycin
PMH/PSH/SH/: Reviewed
Review of systems: Not readily obtainable
White count 16.8, hemoglobin 9.7, sodium 132, potassium 5.2, BUN and creatinine 67 and 2.7 - Creatinine had been 1.8 on September 16, peaked at 3.1, now 2.7
ECG probably sinus rhythm right bundle, inferior SD, possible lateral SD left axis, FL interval has shortened compared to prior tracing and lead reversal no longer apparent
Blood and urine cultures pending, no recent chest x-ray
Objective
Labs:
09/18/23 10:47
09/19/23 03:30
Labs
Hgb 9.7 g/dL (12.0-16.0) L 09/18/23 10:47
Hct 32.1 % (37.0-47.0) L 09/18/23 10:47
Plt Count 355 10^3/uL (130-400) 09/18/23 10:47
Sodium 132 mmol/L (135-145) L 09/19/23 03:30
Potassium 5.2 mmol/L (3.5-5.1) H 09/19/23 03:30
BUN 67 mg/dl (7-17) H 09/19/23 03:30
Creatinine 2.7 mg/dL (0.6-1.0) H 09/19/23 03:30
Glucose 169 mg/dl (70-99) H 09/19/23 03:30
Troponins
09/16/23 09/16/23 09/17/23
13:36 19:10 03:45
Troponin I 0.164 H* 0.401 H* D 0.888 H*
09/17/23 09/17/23 09/18/23
10:10 16:21 06:49
Troponin I 1.080 H* 1.060 H* 1.240 H*
09/18/23 09/18/23 09/18/23
10:47 16:54 23:17
Troponin I 3.070 H* D 7.380 H* D 9.390 H* D
09/19/23
05:36
Troponin I 7.290 H*
Vital Signs and I&O:
Vital Signs
Temp Pulse Resp BP Pulse Ox
36.8 C 91 18 97/53 97
09/19/23 07:21 09/19/23 08:40 09/19/23 06:00 09/19/23 08:40 09/19/23 09:34
Vital Signs
Temp Pulse Resp BP Pulse Ox
36.8 C 91 18 97/53 97
09/19/23 07:21 09/19/23 08:40 09/19/23 06:00 09/19/23 08:40 09/19/23 09:34
Intake & Output
09/17/23 09/18/23 09/19/23 09/20/23
07:59 07:59 07:59 07:59
Intake Total 198 / 198 720 / 720 1060 / 1060
Output Total 1580 / 1580 700 / 700 500 / 500
Balance -1382 / -1382 20 / 20 560 / 560
Physical Exam
Physical Exam
93/52, pulse 86, respirate 15, afebrile, sats 96%, weight is 76.1 kg, if accurate down 0.7 kg, and possibly 7 kg from the seventh, but not cooperated by intake and output, appears in less distress, no clonic motion of left upper extremity today,
head neck exam notable for jugular venous distention, she has a soft systolic murmur, examination of the lungs is limited, abdomen possibly mildly tender, left wrist deformity, not much lower extremity edema
[2023-09-19] MEDS: VANCOCIN 275 MG IV (11:14)
--- NOTE | 2023-09-19 11:23 | W.PN.NEPH.PH ---
Today's Communication / Plan
-
maintain midodrine TID
follow bmp
maintain tate
no acute HD requirement
holding lasix for now
Assessment/Plan
-
Impression:
ERIKA
Sepsis
Hyperkalemia
Metabolic Acidosis (gapped)
History of acute kidney injury requiring dialysis for 2 months in 2019
Troponin Leak
Clinical sepsis, patient currently on ceftriaxone
Toxic metabolic encephalopathy
Paroxysmal atrial fibrillation, not on anticoagulation/watchman
Status post right reverse total shoulder arthroplasty
History of respiratory insufficiency
History of CABG
Elevated troponin
History of Watchman
History of HFpEF
History of CVA
CKD 4 (2.2)
COPD
Cognitive impairment
Cirrhosis
Diabetes
Diabetic neuropathy
Hx of RONDA not on CPAP
Hypothyroidism
h/o recovered Hep C
h/o nephrolithiasis
Plan:
ERIKA:(obstruction vs pre renal)
-Creatinine down to 2.7, urine output approximately 500 cc via Tate
-Hyperkalemia improved to 5.2
-Hemodynamic compromise in setting of evolving sepsis, remains hemodynamically labile, maintain midodrine 10 mg 3 times daily (chronic hypotension)
-maintain tate
-hemodynamic support, midodrine and alkaline ivfs,need to keep MAP > 65, may require pressor support
-lasix held, no chf� on CXR
-antibiotics for presumed sepsis, cultures pending
-Discussed case with daughter who said they would want dialysis if needed, no current need
-
-
Date of Service: September 19, 2023
CC / HPI / ROS
-
Chief Complaint:
ERIKA
History of Present Illness:
creatinine down to 2.7
Remains hemodynamically unstable on midodrine
Potassium down to 5.2
White cell count elevated fevers persist
Review of Systems:
Positive for fever
On oxygen
Nonoliguric 500 cc urine output via Tate
Crying out for help
Labs
-
Labs:
WBC 16.8 10^3/uL (4.8-10.8) H 09/18/23 10:47
RBC 4.25 10^6/uL (4.20-5.40) 09/18/23 10:47
Hgb 9.7 g/dL (12.0-16.0) L 09/18/23 10:47
Hct 32.1 % (37.0-47.0) L 09/18/23 10:47
Plt Count 355 10^3/uL (130-400) 09/18/23 10:47
Sodium 132 mmol/L (135-145) L 09/19/23 03:30
Potassium 5.2 mmol/L (3.5-5.1) H 09/19/23 03:30
Chloride 99 mmol/L (98-107) 09/19/23 03:30
Carbon Dioxide 19 mmol/L (22-30) L 09/19/23 03:30
BUN 67 mg/dl (7-17) H 09/19/23 03:30
Creatinine 2.7 mg/dL (0.6-1.0) H 09/19/23 03:30
eGFR 16.87 09/19/23 03:30
Glucose 169 mg/dl (70-99) H 09/19/23 03:30
Calcium 8.4 mg/dl (8.4-10.2) 09/19/23 03:30
Spu-Y-Ozmxsudezci Pept Cancelled 09/18/23 12:24
Physical Exam
-
Vital Signs:
Vital Signs
Temp Pulse Resp BP Pulse Ox
98.2 F 86 15 93/52 96
09/19/23 07:21 09/19/23 10:58 09/19/23 10:58 09/19/23 10:58 09/19/23 10:58
Cardiovascular:: Regular rate and rhythm
Respiratory:: Bilateral: Coarse
Lung Excursion:: Normal
Abdomen:: Nontender and Soft
Bowel Sounds:: Normal
Extremity Edema:: +1: Bilateral:
Tate Catheter: Yes
[2023-09-19] MEDS: ROXICODONE 10 MG PO (11:56)
[2023-09-19] MEDS: XANAX 0.25 MG PO (12:28)
--- NOTE | 2023-09-19 12:30 | PTCARENOTE ---
Patient in AM screaming out, able to take PO medication and Waleska 5mg was given. Patient was resting comfortably for just over 3 hours before beginning to yell out again in pain. Caregiver at the bedside.
1156 Waleska 10mg given
1230 Patient continuing to yell and restless. Attending notified and 0.25mg Xanax ordered to be given.
[2023-09-19 12:58] LABS: Glucose - Point of Care 145 mg/dl (70-99)
[2023-09-19] MEDS: TYLENOL PO ×3 (13:30→22:05)
[2023-09-19] MEDS: LANOXIN 250 MCG IV (14:04)
--- NOTE | 2023-09-19 14:15 | PTCARENOTE ---
1300 Patient went into A-fib, HR 120'-130's. Attending and Cardiology notified.
1321 Digoxin 250mcg to be ordered with EKG. VAT team placing midline. Patient afebrile, BP 107/61
1415 Patient now SV rhythm HR 146. Attending and Cardiology updated.
--- NOTE | 2023-09-19 15:07 | PTCARENOTE ---
pt with +1-2 hand edema at former piv site. not red, pt denies pain to area. attempted with other VAT team members to place midline without success. pt with piv access at this time for med administration, will cont to monitor for VAT needs
--- NOTE | 2023-09-19 16:10 | PTCARENOTE ---
Attending and Cardiology updated.
Patients HR at times is in the 80's and at times in the 120's. BP 91/54 (65) @ 1545. Recheck of BP @ 1604 was 70/54.
Patient now with a temp of 101.1, IV Ofirmev ordered x1. Patient arousable when stimulated.
1610 Verbal order for Levo and Ofirmev obtained.
[2023-09-19 17:01] LABS: Glucose - Point of Care 111 mg/dl (70-99)
[2023-09-19] MEDS: OFIRMEV 100 IV (17:12)
[2023-09-19] MEDS: STERILE WATER FOR INJECTION 10 ML IV (17:19)
[2023-09-19] MEDS: ROCEPHIN 1000 MG IV (17:19)
--- NOTE | 2023-09-19 17:25 | PTCARENOTE ---
Spoke with cardiology before starting Levo as they were on the floor, decision made to start Corby instead. Awaiting dose from Pharmacy.
[2023-09-19] MEDS: NEO-SYNEPHRINE 250 IV ×2 (17:54→22:47)
--- NOTE | 2023-09-19 18:50 | PTCARENOTE ---
Patient with increased lethargy and minimal response to all stimuli. BP still low 80/56 (65), on Corby @ 20mcg. Shallow respirations on 2L N/C with O2 sat of 94%. HR controlled in the 80's after receiving dose of Digoxin to correct tachycardia.
Rapid Response called.
[2023-09-19 18:57] LABS: Glucose - Point of Care 93 mg/dl (70-99)
[2023-09-19 19:10] LABS: Hematocrit 34.6 % (37.0-47.0); Hemoglobin 10.3 g/dL (12.0-16.0); Mean Corp Hgb Conc. 29.8 g/dL (33.0-37.0); Mean Corpuscular Hgb 22.9 pg (27.0-31.0); Mean Corpuscular Volume 77.1 fL (81.0-99.0); Mean Platelet Volume 10.1 fL (7.4-10.4); Platelet Count 324 10^3/uL (130-400); Red Blood Cell Count 4.49 10^6/uL (4.20-5.40); White Blood Cell Count 11.8 10^3/uL (4.8-10.8)
[2023-09-19 19:23] LABS: INR 1.99; PT 22.5 Sec (11.4-14.6)
[2023-09-19 19:25] LABS: Blood Urea Nitrogen 63 mg/dl (7-17); Calcium 8.6 mg/dl (8.4-10.2); Carbon Dioxide 11 mmol/L (22-30); Chloride 103 mmol/L (98-107); Estimated Creatinine Clearance 15 ml/min; Glucose 99 mg/dl (70-99); Potassium 5.2 mmol/L (3.5-5.1); Sodium 133 mmol/L (135-145); eGFR 14.29
--- NOTE | 2023-09-19 19:27 | W.PN.ANESINT ---
Anesthesia Intubation Note
- Intubation Note
Intubation Note:
Diagnosis: acute respiratory insufficiency with hypoxia and somnolence
Blade: mac 4
Tube Size: 8.0
Depth: 21cm
Side Taped:
Drugs Used: none
Grade View: 1
EtCO2 Present: yes
Atraumatic: yes
Attempts: 1
Insertion Start and Stop Time: 7591-2986
SaO2 Pre: 92
SaO2 Post: 98
Glidescope Used: yes
Other Airway Adjustments:
Pre-Oxygenated:
Portable Chest X-Ray:
RSI:
Suctioned:
Bilateral Breath Sounds Confirmed: yes
Vent Settings:
Settings per _x__Attending Physician
[2023-09-19] MEDS: SODIUM BICARBONATE 50 MEQ IV ×3 (19:47→21:11)
[2023-09-19] MEDS: PITRESSIN 100 IV (19:48)
[2023-09-19] MEDS: SODIUM BICARBONATE 1150 MEQ IV (20:22)
--- NOTE | 2023-09-19 20:32 | W.PN.UPDATE ---
Update Note
Progress Note Update
Anesthesia stat/rapid response. Arrived, patient hypotensive, poorly responsive, paradoxical breathing, discussed with family who decided to proceed with aggressive measures although previously I had gently attempted to discourage. Right common
femoral vein triple-lumen catheter placed without difficulty. Patient intubated. Moved to ICU., Rhythm seem to be atrial fibrillation with rapid ventricular response, blood pressure approximately 80 systolic.
[2023-09-19 20:46] LABS: B.E. -14.8 mmol/L; PCO2 26 mmHg (32-35); PO2 286 mmHg (83-108); pH 7.24 (7.35-7.45)
[2023-09-19 20:48] LABS: HCO3 11.1 mmol/L (21-28)
--- NOTE | 2023-09-19 21:00 | W.PN.UPDATE ---
Update Note
Progress Note Update
09/20/23
190- Rapid response was called for unresponsiveness, agonal breathing, and worsening hypotension. Family at bedside was updated by Bernadette NG and Dr. TARA Nuñez, brokerage branch manager; patient will remain full code and decision was made to intubate.
Anesthesia REVENUE DIRECTOR was called and patient intubated without event. Patient continues to be unresponsive, no sedation was given at time of intubation or additional sedation medications. Vasopressors sundeep and levophed gtts titrated. Patient was then
transported to ICU from IMU. Additional vasopressor added in addition to levophed and sundeep gtts, vasopressin gtt, likely worsening septic shock. HR difficult to control varied rates between Afib and wide complex ventricular rhythm, ?allergy to
amiodarone and was given digoxin earlier and patient persistently hypotensive on 3x vasopressors. Chest xray obtained and ETT in good position. CT of head/chest/abdomen/pelvis without contrast ordered (patient to be transported when more stable),
blood/urine cultures all still pending, ordered COVID/influenza testing. Family updated and all questions answered.
[2023-09-19] MEDS: DEXTROSE 50% SYRINGE 12.5 GRAMS IV (21:11)
[2023-09-19 21:12] LABS: Glucose - Point of Care 69 mg/dl (70-99)
[2023-09-19] MEDS: CRESTOR PO (21:26)
[2023-09-19] MEDS: PROTONIX PO (21:26)
--- NOTE | 2023-09-19 21:45 | W.PN.SEPSIS ---
Sepsis
Vital Signs
Temp Pulse Resp BP Pulse Ox
99.8 F 134 25 128/73 96
09/19/23 20:39 09/19/23 20:30 09/19/23 20:30 09/19/23 20:30 09/19/23 20:36
Physical Exam
Physical Exam:
A focused exam was performed after fluid resuscitation.
Capillary Refill
Bilateral Upper Extremity:
Venita Time: Less than 3 sec
Bilateral Lower Extremity:
Venita Time: Less than 3 sec
Pulse Evaluation
Bilateral Radial:
Pulse Evaluation: Present
Bilateral Dorsalis Pedis:
Pulse Evaluation: Present
[2023-09-19 21:47] LABS: Triglycerides 208 mg/dl (10-149)
[2023-09-19] MEDS: LEVOPHED 250 IV (21:48)
[2023-09-19 21:53] LABS: Glucose - Point of Care 112 mg/dl (70-99)
--- NOTE | 2023-09-19 21:54 | PTCARENOTE ---
Late note due to patient care.
Received pt from previous RN Dimitrios, Pt intubated ETT #8 21cm at lip on right side. Pupils sluggish 2/2, does not follow commands, Uncontrolled Afib 130-160. Right triple Lumen placed by Dr. Nuñez at bedside. Vasopressin, levo, Corby infusing titrated
per order. IV Bicarb administered at 1930, 194 and 2110 for Hco3 of 11. Bicarb infusion initiated at 100ml/hr. Weak pedal pulses. Right arm in sling from recent shoulder surgery, Left wrist is deformed from previous fracture. SCDs on lower
extremities. Plan for Head Ct once VSS. Family at bedside and updated.
[2023-09-20] VITALS (114 sets, daily range): BP systolic 51–141; BP diastolic 12–126; BMI 24.9
--- NOTE | 2023-09-20 | PTCARENOTE ---
Pt transported to CAT SCAN for CT of head/chest/abd. Remains on levo, sundeep and vasopressin. assessment unchanged.
[2023-09-20] MEDS: LEVOPHED 250 IV ×5 (01:00→11:00)
[2023-09-20] MEDS: FLAGYL 500 MG 100 IV ×3 (02:15→17:41)
[2023-09-20] MEDS: DEXTROSE 50% SYRINGE 12.5 GRAMS IV ×2 (02:23→04:30)
[2023-09-20 02:39] LABS: Glucose - Point of Care 49 mg/dl (70-99)
[2023-09-20 02:43] LABS: COVID-19 Antigen Negative (Negative)
[2023-09-20 02:56] LABS: Glucose - Point of Care 76 mg/dl (70-99)
[2023-09-20] MEDS: NEO-SYNEPHRINE 250 IV ×3 (02:56→11:00)
[2023-09-20] MEDS: SODIUM BICARBONATE 1150 MEQ IV (03:01)
[2023-09-20] MEDS: PITRESSIN 100 IV ×2 (03:12→14:31)
[2023-09-20] MEDS: SUBLIMAZE 50 MCG IV (03:22)
[2023-09-20 03:42] LABS: Hemoglobin 9.8 g/dL (12.0-16.0); Mean Corp Hgb Conc. 28.8 g/dL (33.0-37.0); Mean Corpuscular Hgb 22.6 pg (27.0-31.0); Mean Corpuscular Volume 78.5 fL (81.0-99.0); Mean Platelet Volume 10.3 fL (7.4-10.4); Platelet Count 402 10^3/uL (130-400); Red Blood Cell Count 4.33 10^6/uL (4.20-5.40); Red Cell Dist. Width 16.7 % (11.5-14.5); White Blood Cell Count 29.9 10^3/uL (4.8-10.8)
[2023-09-20 03:53] LABS: INR 2.82; PT 29.6 Sec (11.4-14.6)
[2023-09-20 03:54] LABS: APTT 39.2 Sec (23.4-35.0)
[2023-09-20 03:56] LABS: B.E. -22.6 mmol/L; O2 Saturation % 99.9 % (94-98); PCO2 20 mmHg (32-35); PO2 373 mmHg (83-108)
[2023-09-20 03:59] LABS: HCO3 5.8 mmol/L (21-28); pH 7.07 (7.35-7.45)
[2023-09-20 04:10] LABS: Vancomycin Random 15.7 ug/ml
[2023-09-20] MEDS: SODIUM BICARBONATE 50 MEQ IV ×5 (04:16→06:36)
[2023-09-20 04:36] LABS: NT-proBNP > 27000 pg/ml
[2023-09-20 04:39] LABS: Glucose - Point of Care 60 mg/dl (70-99)
[2023-09-20 04:41] LABS: ALT (SGPT) 95 U/L (0-35); AST (SGOT) 334 U/L (14-36); Albumin 2.6 g/dl (3.5-5.0); Alkaline Phosphatase 259 U/L (38-126); Blood Urea Nitrogen 64 mg/dl (7-17); Carbon Dioxide 5 mmol/L (22-30); Chloride 95 mmol/L (98-107); Estimated Creatinine Clearance 11 ml/min; Glucose 73 mg/dl (70-99); Potassium 6.2 mmol/L (3.5-5.1); Sodium 135 mmol/L (135-145); Total Bilirubin 1.4 mg/dl (0.2-1.3); Total Protein 5.2 g/dl (6.3-8.2); eGFR 10.52
[2023-09-20 04:58] LABS: Lactic Acid 19.5 mmol/L (0.7-2.0)
[2023-09-20] MEDS: SODIUM BICARBONATE 1125 MEQ IV ×3 (05:03→20:31)
[2023-09-20 05:07] LABS: Glucose - Point of Care 132 mg/dl (70-99)
--- NOTE | 2023-09-20 05:21 | PTCARENOTE ---
Pt continues to be acidotic, bicarb administered. Hypoglycemic BG 46, protocol followed. Vent settings changed by RT after ABG results. 12/300/5/60%.
[2023-09-20] MEDS: SYNTHROID PO (05:37)
[2023-09-20 07:18] LABS: Glucose - Point of Care 117 mg/dl (70-99)
--- NOTE | 2023-09-20 07:30 | CON.INTV ---
Consultation
Consultation Request
Date/Time Consultation Requested: 09/20/2023-7 AM
Date/Time Consultation Performed: 09/20/2023-7:15 AM
Requesting Provider: Hospitalist
Performing Provider: Dr. Dougherty
Reason for Consultation: Sepsis/ventilator/critical care management
Medical History
-
Chief Complaint: Mental status changes/sepsis
History of Present Illness:
83-year-old female with multiple medical problems admitted 09/16/2023 with witnessed respiratory arrest after elective right TSA for right humeral fracture treated with BiPAP which was eventually weaned with subsequent deterioration mental status
changes, hypoxemia, requiring intubation and transferred to ICU 09/20/2023-pyrotechnic assembler consulted for ventilator/suspected sepsis/shock/critical care management 09/20/2023. The patient is sedated on a ventilator and review of systems was unobtainable.
Past Medical History
Past Medical History: None (Afib Asthma CKD s/p 2 m HD in past CAD Chronic anemia Cancer (Breast) COPD CVA GERD HTN Hypercholesterolemia NIDDM Hypothyroidism Anxiety Depression Headaches Slight Dementia Sleep apnea PNA RBBB Rheumatic heart disease
Hep C IBS GI bleed UTI Fatty liver Anemia Cardiac (bypass, Ablation) Cholecystec)
Past Surgical History: None (Right upper extremity fracture August 2023. Ovarian cyst. Uterine fibroids. Hysterectomy. Nephrectomy. Non-smoker.)
Social History
Tobacco: Non-smoker
Alcohol: None
Drug: None
Living: With Family
Occupational Exposures: No known asbestos exposure
Environmental Exposures: No known tuberculosis exposure
Family History
Family History: Reviewed & Not Pertinent
Allergies / Home Medications
Allergies
Allergy/AdvReac Type Severity Reaction Status Date / Time
adhesive Allergy Unknown Verified 09/16/23 06:56
amiodarone Allergy Unknown Verified 09/16/23 06:56
cephalexin [From Keflex] Allergy tolerated Verified 09/18/23 09:41
ceftriaxone,cefazolin,augmentin,[id number],2024
latex Allergy Unknown Verified 09/16/23 06:56
prochlorperazine Allergy Unknown Verified 09/16/23 06:56
[From Compazine]
prochlorperazine edisylate Allergy Unknown Verified 09/16/23 06:56
[From Compazine]
prochlorperazine maleate Allergy Unknown Verified 09/16/23 06:56
[From Compazine]
Sulfa (Sulfonamide Allergy Unknown Verified 09/16/23 06:56
Antibiotics)
sulfasalazine Allergy pt states Verified 09/16/23 06:56
gives her
a headache
Home Medications
Medication Instructions Recorded Confirmed Last Taken Type
gabapentin 300 mg capsule 300 mg PO DAILY@829 Pain 09/23/22 09/16/23 09/15/23 08:30 History
glimepiride 2 mg tablet 2 mg PO DAILY@829 Diabetes 09/23/22 09/16/23 09/15/23 08:30 History
levothyroxine 112 mcg tablet 112 mcg PO DAILY@629 Thyroid 09/23/22 09/16/23 09/15/23 06:30 History
pantoprazole 40 mg tablet,delayed 40 mg PO BID@829,202909/23/22 09/16/23 09/15/23 20:30 History
release Gastrointestinal issue
rosuvastatin 20 mg tablet 20 mg PO DAILY@2029 High 09/23/22 09/16/23 09/15/23 20:30 History
cholesterol
sertraline 50 mg tablet 50 mg PO DAILY@829 Mental Health 09/23/22 09/16/23 09/15/23 08:30 History
vibegron 75 mg tablet (Gemtesa) 75 mg PO DAILY@829 Urinary Issue 01/04/23 09/16/23 09/15/23 20:30 History
gabapentin 300 mg capsule 600 mg PO DAILY@2029 Pain 08/16/23 09/16/23 09/15/23 20:30 History
acetaminophen 325 mg tablet 650 mg PO Q4H PRN mild 09/02/23 09/16/23 09/14/23 12:30 History
(Tylenol) pain/fever>100.4
acetaminophen 500 mg tablet 1,000 mg PO Q12H@0830,2029 Pain 09/02/23 09/16/23 09/15/23 20:30 History
(Pharbetol)
albuterol sulfate 90 mcg/actuation 1 puff inhalation R Q6HPRN PRN 09/02/23 09/16/23 Unknown History
aerosol inhaler dyspnea
benzocaine 20 %-resorcinol 3 % 1 applic topical BIDPRN PRN apply 09/02/23 09/16/23 09/15/23 20:30 History
topical cream (Vagicaine) to vaginal area
bisacodyl 10 mg rectal suppository 10 mg VA DAILY PRN q 3 days when 09/02/23 09/16/23 Unknown History
no BM and MOM/lactulose ineffective
furosemide 40 mg tablet 40 mg PO DAILY@0830 Fluid 09/02/23 09/16/23 09/15/23 08:30 History
Retention/Swelling
magnesium hydroxide 400 mg/5 mL 30 ml PO HSPRN PRN constipation 09/02/23 09/16/23 Unknown History
oral suspension (Milk of Magnesia)
methenamine hippurate 1 gram tablet 1 g PO Q12H@0830,2029 Infection 09/02/23 09/16/23 09/15/23 20:30 History
metoprolol succinate 25 mg 25 mg PO DAILY@0830 HTN 09/02/23 09/16/23 09/15/23 08:30 History
tablet,extended release 24 hr
(Toprol XL)
midodrine 10 mg tablet 5 mg PO TID PRN if SBP<100 or 09/02/23 09/16/23 Unknown History
complaints of dizziness
multivitamin 1 tab PO DAILY@0830 Supplement 09/02/23 09/16/23 Unknown History
alprazolam 0.25 mg tablet 0.25 mg PO HS PRN anxiety #10 tabs 09/04/23 09/16/23 09/15/23 23:59 Rx
oxycodone 5 mg capsule 5 mg PO BID PRN Pain #14 caps 09/04/23 09/16/23 09/15/23 23:59 Rx
chlorhexidine gluconate 4 % 1 applic topical . DIRECTED Skin 09/11/23 09/16/23 09/15/23 20:30 History
topical liquid (Hibiclens) Issues
docusate sodium 100 mg capsule 200 mg PO DAILY Constipation 09/11/23 09/16/23 09/15/23 08:30 History
(Colace)
mupirocin 2 % topical ointment 1 applic topical BID Skin Issues 09/11/23 09/16/23 09/15/23 18:30 History
Review of Systems
-
Unable to Obtain full review of systems at this time due to: Patient Intubation
Vitals / Labs / Diagnostic Testing
Vital Signs
Temp Pulse Resp BP Pulse Ox
99.8 F 130 27 94/64 98
09/20/23 03:39 09/20/23 05:20 09/20/23 05:20 09/20/23 05:20 09/20/23 05:20
Lab Data
09/20/23 03:32
Laboratory Results
09/19/23 09/19/23 09/20/23
18:55 20:37 03:32
PT 22.5 H 29.6 H
INR 1.99 2.82
APTT 39.2 H
pH 7.24 L
pCO2 26 L
pO2 286 H
HCO3 11.1 L*
O2 Delivery Level
09/20/23
03:50
PT
INR
APTT
pH 7.07 L*
pCO2 20 L
pO2 373 H
HCO3 5.8 L*
O2 Delivery Level
Microbiology
09/20/23 01:57 Nasal Swab Influenza Types A & B (XI) - Final
Negative for Influenza A & B, NAAT
Negative results must be combined with clinical observations
and patient history.
Nucleic Acid Amplification test (NAAT)performed on the
[employer] platform.
09/18/23 11:07 Urine Urine Culture - Preliminary
09/18/23 11:22 Blood/Venous Blood Culture - Preliminary
No Growth in 24 hours- Final report to follow
09/18/23 10:47 Blood/Venous Blood Culture - Preliminary
No Growth in 24 hours- Final report to follow
09/18/23 01:15 Feces/Stool C. difficile GDH Antigen & Toxins - Final
Negative for toxigenic C.difficile
09/16/23 13:36 Nose MRSA Screen - Final
No Methicillin Resistant Staphylococcus aureus isolated.
Diagnostic Testing:
Physical Exam
-
Exam:
Well-nourished and well-developed in no apparent distress
HEENT-atraumatic, normocephalic, oral tracheal intubation noted
Neck-supple, no JVD, no bruit
Heart-regular rate and rhythm-no murmurs, rubs or gallops
Chest with diminished breath sounds, expiratory rhonchi and crackles at the bases
Abdomen-soft, nontender, nondistended, no hepatosplenomegaly
Extremities-no cyanosis, clubbing, edema and good peripheral pulses
Integument-intact, no rashes, lesions or ecchymosis
Neurologically opens eyes, moving extremities, lethargic
Assessment
-
83-year-old female with multiple medical problems admitted 09/16/2023 with witnessed respiratory arrest after elective right TSA for right humeral fracture treated with BiPAP which was eventually weaned with subsequent deterioration mental status
changes, hypoxemia, requiring intubation and transferred to ICU 09/20/2023-pyrotechnic assembler consulted for ventilator/suspected sepsis/shock/critical care management 09/20/2023.
Assessment
Shock-septic versus cardiogenic-on triple pressors
Ventilator dependent respiratory failure
Intubated 09/20/2023
Toxic metabolic encephalopathy
Severe metabolic acidosis
Troponin elevation-suspect non-STEMI
Leukocytosis-WBC 29.9
Tqgips-xrsezeggjt-jxogfzmrco 9.8
Thrombocytosis
Hyperkalemia
ERIKA
Hyperglycemia
Hypocalcemia
Witnessed respiratory arrest post orthopedic surgery-09/16/2023
Responded to narcan/flumazenil/sugammadex
Acute hypercapnic respiratory failure-medication effect-resolved with BiPAP
Conditions present prior to admission:
Adm 09-02 to for hypoxemia, decreased MS, hypoglycemia. Negative RUBÉN doppler, V/Q with suspected perfusion defect at L base but associated with atelectatic area
Suspected L basilar pneumonia, adm DH in early Aug 2023
Nocturnal hypoxemia on O 2 2L
Chronically dilated and hypokinetic right ventricle since echocardiogram May 2022
RUE fracture secondary to fall 08-25
Afib
Asthma
CKD s/p 2 m HD in past
CAD
Chronic anemia
Cancer (Breast)
COPD
CVA
GERD
HTN
Hypercholesterolemia
NIDDM
Hypothyroidism
Anxiety
Depression
Headaches
Slight Dementia
Sleep apnea
PNA
RBBB
Rheumatic heart disease
Hep C
IBS
GI bleed
UTI
Fatty liver
Anemia
Cardiac (bypass, Ablation)
Cholecystectomy
Ovarian cyst
Uterine fibroids
Hysterectomy
Nephrectomy
Non-smoker
Plan
Admit patient to medical intensive care unit for persistent hypotension despite fluid resuscitation requiring pressors
Ventilator settings reviewed
Airway pressures reviewed
With severe acidosis-increase minute ventilation-increased rate, no change in volume-lung protective strategy will ensue
Follow ABG
Bicarb administration as needed-on BiPAP drip
VAP prevention protocol
Nebulizers if needed-currently not bronchospastic
Check cultures
Empiric antibiotics-vancomycin and cefepime initiated
Infectious disease consultation pending
Follow leukocytosis
Fluid resuscitation with 30 mL/kg crystalloid-preferably lactated ringer-(less ERIKA) with subsequent boluses as needed
Monitor lactate
Follow CVP if possible
Attempt noninvasive bedside tissue perfusion evaluation to see if fluid bolus responsive
Measure pulse pressure and stroke volume variation if patient on ventilator, passively breathing without arrhythmia and with temporary large tidal volume ventilation and if > 13% then likely fluid bolus responsive
If patient active then consider measuring bedside leg lift for 3 minutes and if cardiac output increases or if there is a rise of 2-4 on end-tidal CO2 then fluid bolus
If bedside ultrasound available then measure IVC diameter variation to evaluate for fluid bolus responsiveness
Begin pressors as needed for MAP goal of 65-Norepinephrine first, then Vasopressin and consider Angiotensin II if continues to be hypotensive
Consider methylene blue if available-specific inhibitor of induced nitric oxide synthase iNOS and its downstream enzyme soluble guanylate cyclase-noninferiority study shown to reduce time to vasopressor discontinuation, decreased ICU length of stay,
hospital stay but no change in mortality-published Critical Care 10/20/2022
If persistently hypotensive then consider checking random cortisol-hydrocortisone if random less than 3, if 3-15 then consider ACTH stimulation test
If persistently hyperthermic then correcting hyperthermia can decrease pressor requirements, increased chances of reversal of shock and decrease mortality
Cardiology evaluation ongoing
Recheck echocardiogram
Nephrology following-correspondence reviewed
Monitor renal function
Replace electrolytes
DVT prophylaxis
Early nutrition if possible
Early mobilization/bedside range of motion
Prognosis unfortunately quite poor-family discussions in regards to DNR status-recommend supportive care, however, CPR/shocking/progressive coding likely futile
Critical care statement: A total of 50 minutes of critical care time was provided for this patient today. This includes management of unstable vital signs, evaluation of the patient at bedside, reviewing the patient's pertinent medical records
including radiographs, microbiology, laboratory evaluations, and discussion with primary team, consultants, pharmacy, nutrition, physical therapy, case management, charge nurse, critical care nursing, and respiratory therapy.
Diagnostic data:
Chest x-ray 08/29/2023-acute fracture proximal right humerus, cardiomegaly
Chest x-ray 09/19/2023-endotracheal tube tip above the ab, no pneumothorax, left hemidiaphragm obscured suggesting left basilar opacification atelectasis versus pneumonia versus small effusion
VQ scan 09/03/2023-intermediate probability for PE
CT head 09/18/2023-no acute intracranial abnormalities, mild white matter hypoattenuation
CT head 09/19/2023-no acute intracranial abnormalities, diffuse cortical atrophy
CT chest abdomen and pelvis 09/19/2023-volume loss left chest with left lower lobe subsegmental atelectasis, moderate anorectal wall thickening could represent stercoral colitis or proctitis L3 vertebral compression fracture
Echocardiogram 08/17/2023-EF 50%, aortic sclerosis, PA systolic 32,
Data Reviewed
-
EKG: Report reviewed by me
Radiology: Report reviewed by me
CT Scan: Report reviewed by me
Ultrasound: Report reviewed by me
Medical Tests (Nuc Med, Echo etc): Report reviewed by me
Labs: Labs reviewed by me
Old Records: Reviewed
Critical Care Time (in minutes): 50
--- NOTE | 2023-09-20 07:50 | W.PN.NEPH.PH ---
Today's Communication / Plan
-
Maintain sodium bicarbonate IV fluids for profound metabolic acidosis
IV calcium repletion
3 full pressor support with intubation
Assessment/Plan
-
Impression:
ERIKA
Sepsis
Hyperkalemia
Metabolic Acidosis (gapped)
History of acute kidney injury requiring dialysis for 2 months in 2019
Troponin Leak
Clinical sepsis, patient currently on ceftriaxone
Toxic metabolic encephalopathy
Paroxysmal atrial fibrillation, not on anticoagulation/watchman
Status post right reverse total shoulder arthroplasty
History of respiratory insufficiency
History of CABG
Elevated troponin
History of Watchman
History of HFpEF
History of CVA
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
COPD
Cognitive impairment
Cirrhosis
Diabetes
Diabetic neuropathy
Hx of RONDA not on CPAP
Hypothyroidism
h/o recovered Hep C
h/o nephrolithiasis
Plan:
ERIKA:(obstruction vs pre renal)
-worsening, creatinine 4.0 earlier this morning
-350 cc of urine output via Bo
-Profound metabolic acidosis despite aggressive bicarb repletion which will continue
-Last serum pH was 7.07
-Patient transferred to ICU after acutely decompensating last evening now on multiple pressors (3)
-lactic acidosis >18
-For echo today
-Replete calcium IV
-09/18/2023 blood cultures have been
-antibiotics for presumed sepsis
-Previously Discussed case with daughter who said they would want dialysis if needed however patient is too hemodynamically unstable for dialysis support
-Patient critically ill on 3 pressor support with intubation and life-threatening metabolic acidosis
Total Time Spent with Patient (in minutes): 32
-
-
Date of Service: September 20, 2023
CC / HPI / ROS
-
Chief Complaint:
ERIKA
History of Present Illness:
creatinine up to 3.8
Remains hemodynamically unstable on full 3 pressor max
Hyperkalemia
White cell count elevated fevers persist
Profound metabolic acidosis
Review of Systems:
Positive for fever
Now intubated on FiO2 50%
Nonoliguric 500 cc urine output via Bo
Labs
-
Labs:
WBC 29.9 10^3/uL (4.8-10.8) H 09/20/23 03:32
RBC 4.33 10^6/uL (4.20-5.40) 09/20/23 03:32
Hgb 9.8 g/dL (12.0-16.0) L 09/20/23 03:32
Hct 34.0 % (37.0-47.0) L 09/20/23 03:32
Plt Count 402 10^3/uL (130-400) H D 09/20/23 03:32
eGFR 10.52 09/20/23 03:32
Pav-B-Xzkszrlzzlb Pept > 64415 pg/ml 09/20/23 03:32
Albumin 2.6 g/dl (3.5-5.0) L 09/20/23 03:32
Physical Exam
-
Vital Signs:
Vital Signs
Temp Pulse Resp BP Pulse Ox
99.8 F 130 27 94/64 99
09/20/23 03:39 09/20/23 05:20 09/20/23 05:20 09/20/23 05:20 09/20/23 07:36
Cardiovascular:: Irregular rate and rhythm
Respiratory:: Bilateral: Coarse
Lung Excursion:: Normal
Bowel Sounds:: None
Extremity Edema:: +1: Bilateral:
Bo Catheter: Yes
Other Findings::
gen: intubated sedated
[2023-09-20] MEDS: ASPIRIN PO (07:58)
[2023-09-20] MEDS: PROTONIX PO ×2 (07:58→20:31)
[2023-09-20] MEDS: TYLENOL PO ×3 (07:58→15:34)
[2023-09-20 08:08] LABS: Blood Urea Nitrogen 62 mg/dl (7-17); Calcium 6.9 mg/dl (8.4-10.2); Carbon Dioxide 11 mmol/L (22-30); Chloride 94 mmol/L (98-107); Estimated Creatinine Clearance 12 ml/min; Glucose 154 mg/dl (70-99); Potassium 5.4 mmol/L (3.5-5.1); Sodium 137 mmol/L (135-145); eGFR 11.19
--- NOTE | 2023-09-20 08:17 | W.PN.HOSP.TC ---
Addendum entered and electronically signed by Jamison Hamilton MD 09/20/23 13:35:
Family discussion
2 of her daughters were present. Another daughter lives in [place] and son in [facility] who is plan to come today.
Inocencia is POA ,present at bedside.
They have already met the turn down man, infectious disease and as well as angle shear set up operator.
They are aware about the critical nature of illness. They are aware that she is requiring 3 vasopressors at max doses. They know she is having worsening renal failure issues and oliguric.
Currently on broad-spectrum antibiotics for possible septic shock. She is getting an echocardiogram currently.
This is the sickest her mom has ever been.
Did not want her to suffer.
They asked me what would happen if they take the breathing tube out and i told them that she would . There waiting for the brother to come.
Broached the topic about resuscitation in the event of cardiac arrest. They do not want her to suffer anymore and in the event of cardiac arrest they wanted to go peacefully. No CPR or electrical shocks.
Discussed with CAR PILOT
Addendum entered and electronically signed by Jamison Hamilton MD 09/20/23 08:43:
Had a discussion with the Vincent who is daughter/POA.
Discussed but progressive hemodynamic instability on 3 vasopressors. Consented that if it is sepsis not cardiac in nature. She is now on the ventilator. Her creatinine is getting worse she is becoming more acidotic.
Told her she is very sick and the prognosis is poor.
She takes make back to an admission where mom was admitted with aspiration pneumonia and did poorly for 2 weeks and even there was discussions about hospice but mom pulled through after.
I told him the daughter that prognosis is even worse and this is organ dysfunction now. She understands the critical nature of the illness.
Did broach the subject of CPR and resuscitation in event of cardiac arrest and she could not make a decision at the current time. Her other sister is going to see mom today this morning.
Original Note:
Today's Communication/Plan
-
ECHO
CW Vent support ,consult Sales Administrator
Broaden ABX sirena , consult ID
CW IV bicarb per renal
Assessment / Plan
Assessment / Plan
Shock-? Septic but rule out cardiogenic.
Patient postop developed leukocytosis and had fever. So far positive data was urinalysis which was abnormal. Was covered with initially ceftriaxone. Patient was not postop clindamycin prophylaxis and once it was done patient was switched to
vancomycin and Flagyl. Yesterday's chest x-ray raises concern about left basilar opacity. CT of the abdomen and pelvis is done the report of which is pending. Blood cultures have been negative.
Broaden ceftriaxone to cefepime. Continue with vancomycin and Flagyl. Consult infectious disease. Continue with vasopressor support.
Acute respiratory failure-patient was hemodynamically unstable and went on the ventilator. Chest x-ray no evidence of CHF but has left basilar opacity. Continue with the vent support. Pulmonary following. Currently on 50% FiO2.
Change in mental status-patient with decreased responsiveness 09/18. Suspect TME
Clinically improved-patient more awake and more alert /10 am.
Clinical concern for sepsis with fever and leukocytosis.
No hypercapnia.
CT head neg for acute findings
Focal jerking of left upper extremity which looks myoclonic but isolated to the limb. May be encephalopathy related. But in view of known atrial fibrillation and not on anticoagulation got a CT head -no acute events. EEG report noted -no
epileptiform activity
Elevated troponins -suspect NSTEMI --without chest pain. EKG on adx showed atrial fibrillation with right bundle branch block. Patient known to have paroxysmal atrial fibrillation. Troponin peaked 12s Cardiology following.Will obtain ECHO
ERIKA on Chronic kidney disease stage IV
Severe metabolic acidosis with elevated anion gap-possibly secondary to acute kidney injury and lactic acidosis
Hyperkalemia sec to renal insufficiency
Patient was retaining urine as high as 1580 cc and now has a Bo catheter. Unclear if acute elevation is secondary to retention. Continue to follow.
Worsening acidosis and creatinine. Currently on bicarb drip. Follow urine output.
Appreciate nephrology input.
S/p elective right reverse TSA for right humerus fracture-continue postop care per orthopedics. cw pain meds cautiously
Acute hypoxic respiratory failure with respiratory arrest as witnessed by FINANCIAL RETIREMENT PLAN SPECIALIST-improved with a combination of Narcan/flumazenil/sugammadex in PACU.� Patient without any acute respiratory distress immediately in PACU and remained so now. She was
off of oxygen. She was without any respiratory complaints. Suspect related to medication doubt underlying cardiopulmonary acute issues.
Chest x-ray reviewed - limited but no focal dz or CHF. ABG showed acute hypercapnia possibly secondary to respiratory depression and arrest.
Microcytic anemia-stable H&H compared to recent. Check iron studies and Hemoccult stools.
CAD s/p prior CABG-patient currently without chest pain.� Follow on telemetry.� Continue with her home cardiac regimen.
Paroxysmal atrial fibrillation s/p Watchman procedure-continue the beta-halima. Issues with RVR yesterday. Got dig . Will follow HR.
Chronic heart failure with preserved EF-Elevated BNP noted -
History of COPD-currently with no reactive airways.
History of obstructive sleep apnea not on CPAP
DW CAR PILOT
Discussed with nephrology.
Discussed with strip deburrer.
Discussed with daughter
Total Critical Care Time_32____ minutes. I was immediately available to the patient and staff. I personally examined, reviewed labs, diagnostic images/reports, interpretations, treatment plans, discussed patient care with other providers and
family or caregivers (if patient is unable to make decisions), entered orders as appropriate and documented the medical record.
Anticipated Discharge: > 48 hours
Subjective/Interval History
-
Date of Service: September 20, 2023
Last night events noted.
The patient got progressively worse hemodynamically needing more pressors and got intubated.
Patient currently sedated and on vent
Objective Data
-
Labs:
Laboratory Results
09/19/23 09/20/23 09/20/23
20:37 03:32 03:50
WBC 29.9 H
Hgb 9.8 L
Hct 34.0 L
Plt Count 402 H D
PT 29.6 H
INR 2.82
APTT 39.2 H
HCO3 11.1 L* 5.8 L*
Sodium 135
Potassium 6.2 H*
Chloride 95 L
Carbon Dioxide 5 L*
BUN 64 H
Creatinine 4.0 H
Glucose 73
Calcium 8.0 L
Total Bilirubin 1.4 H
AST 334 H
ALT 95 H
Alkaline Phosphatase 259 H
09/20/23 09/20/23 09/20/23
07:27 07:40 12:00
WBC
Hgb
Hct
Plt Count
PT
INR
APTT
HCO3 Pending
Sodium 137 Pending
Potassium 5.4 H Pending
Chloride 94 L Pending
Carbon Dioxide 11 L* Pending
BUN 62 H Pending
Creatinine 3.8 H Pending
Glucose 154 H Pending
Calcium 6.9 L* Pending
Total Bilirubin
AST
ALT
Alkaline Phosphatase
09/20/23 09/20/23
16:00 20:00
WBC
Hgb
Hct
Plt Count
PT
INR
APTT
HCO3
Sodium Pending Pending
Potassium Pending Pending
Chloride Pending Pending
Carbon Dioxide Pending Pending
BUN Pending Pending
Creatinine Pending Pending
Glucose Pending Pending
Calcium Pending Pending
Total Bilirubin
AST
ALT
Alkaline Phosphatase
Vital Signs:
Vital Signs
Temp Pulse Resp BP Pulse Ox
100.2 F 130 27 94/64 99
09/20/23 07:30 09/20/23 05:20 09/20/23 05:20 09/20/23 05:20 09/20/23 07:36
I&O
09/19/23 09/20/23 09/21/23
06:59 06:59 06:59
Intake Total 310 / 310 3953.3 / 4285.3 332 / 332
Output Total 850 / 850 0 / 0
Balance 310 / 310 3103.3 / 3435.3 332 / 332
Review of Systems
-
Unable to obtain full review of systems at this time due to: Patient Intubation
Physical Exam
-
General: No Apparent Distress
HEENT: Moist Mucous Membranes
Respiratory: Clear to Auscultation (anteriorly)
Cardiac: S1/S2, Irregular Rhythm and Tachycardic
GI: Soft and Normal Bowel Sounds
Neuro: Sedated
Data Reviewed
-
Diagnostic Radiology: Report Reviewed by me (cxr)
Labs: Labs Reviewed by me
[2023-09-20] MEDS: CALCIUM GLUCONATE 290 MG IV (08:46)
[2023-09-20 09:05] LABS: O2 Saturation % 99.4 % (94-98); PCO2 20 mmHg (32-35); PO2 143 mmHg (83-108); pH 7.24 (7.35-7.45)
[2023-09-20 09:06] LABS: HCO3 8.6 mmol/L (21-28)
--- NOTE | 2023-09-20 09:15 | CON.ID ---
Consultation
-
Date/Time Consultation Requested: 09/20/23 8:20
Date/Time Consultation Performed: 09/20/23 9:18
Requesting Provider: Dr Hamilton
Performing Provider: Dr Marquez
Reason for Consultation: shock
Chief Complaint / Past History
Chief Complaint
elective right reverse TSA for right humerus fx - witnessed resp arrest
History of Present Illness
Ms Rolon is an 83 year old female with extensive medical history most notable for COPD, rheumatic heart disease, hypokinetic RV, CKD w/p 2 months of HD previously - previous nephrectom. On 08/25/23 she fell and fractured her right humerus., who
presented to on 09/16 for elective right reverse TSA for right humerus fx complicated by witnessed resp arrest - responded to narcan/flumazenil/sugammadex. She was initially placed on Bipap which was weaned off the next day. She was noted to have
troponin elevation to 0.888 and cardiology consulted managed as ischemic cardiac injury. On 09/18 she was noted to have a change in mental status with decreased responsiveness post ativan and focal jerking in the LUE. CT head done - nonfocal, EEG -
no acute events, ERIKA on CKD noted - tate placed and IV given. There was concern for sepsis with fever and leukocytsois, UA with gross pyuria, started on ceftriaxone - previously on clindamycin for prophylaxis switched to vancomycin - midodrine
started. 09/19 TME continued - moaning. patient with tachycardic and clinical deterioration, treated with dignoxin (amiodarone allergy), overnight agonal breathing noted and require intubation for acute resp insufficiency with hypoxia. progressive
hypotension requiring vasopressor, levophed, sundeep and HR notably difficult to contrl with rates between afib and wide complex ventricular rhythm. Today 09/20 fever curve may be improving Tmax overnight 101.1, reamins in shock on pressors x3
(increasing norepi and phenylephrine), wbc increased from 11.8 to 29.9, hgb 9.8, plt increased to 402, K increased to 6.2, Co2 now 5 down from 11, Cr increased to 4.0, uncorrected Ca 6.9, t bili 1.4, AST 334, alt 95, al pohs 259, troponins cycling
up now 12.6, probnp >31237, INR increasing now 2.8, echo is planned, antibiotics are vancomycin/cefepime/metrondiazole. CXR with concern for possible L basilar opacity. CT a/p, urine culture 100K c albicans QTc 533 with wide complexs on last exam,
even when last in sinus rhythem 09/17 QTc was 518
Past History
Additional Past Medical History:
Nocturnal hypoxemia on O 2 2L
Chronically dilated and hypokinetic right ventricle since echocardiogram May 2022
RUE fracture secondary to fall 08-25
Afib
Asthma
CKD s/p 2 m HD in past
CAD
Chronic anemia
Cancer (Breast)
COPD
CVA
GERD
HTN
Hypercholesterolemia
NIDDM
Hypothyroidism
Anxiety
Depression
Headaches
Slight Dementia
Sleep apnea
PNA
RBBB
Rheumatic heart disease
Hep C
IBS
GI bleed
UTI
Fatty liver
Anemia
Additional Past Surgical History:
Cardiac (bypass, Ablation)
Cholecystectomy
Ovarian cyst
Uterine fibroids
Hysterectomy
Nephrectomy
Allergy History:
adhesive Allergy (Verified 09/16/23 06:56)
Unknown
amiodarone Allergy (Verified 09/16/23 06:56)
Unknown
cephalexin [From Keflex] Allergy (Verified 09/18/23 09:41)
tolerated ceftriaxone,cefazolin,augmentin,akthot1230,2023
latex Allergy (Verified 09/16/23 06:56)
Unknown
prochlorperazine [From Compazine] Allergy (Verified 09/16/23 06:56)
Unknown
prochlorperazine edisylate [From Compazine] Allergy (Verified 09/16/23 06:56)
Unknown
prochlorperazine maleate [From Compazine] Allergy (Verified 09/16/23 06:56)
Unknown
Sulfa (Sulfonamide Antibiotics) Allergy (Verified 09/16/23 06:56)
Unknown
sulfasalazine Allergy (Verified 09/16/23 06:56)
pt states gives her a headache
Medications Reviewed: Yes
Social History
Tobacco: Non-Smoker
Alcohol: None
Drug: None
Family History
Family History: Not Pertinent
Review of Systems
Review of Systems
unable to obtain due to the condition of the patient
Vital Signs
Temp Pulse Resp BP Pulse Ox
100.2 F 130 27 94/64 99
09/20/23 07:30 09/20/23 05:20 09/20/23 05:20 09/20/23 05:20 09/20/23 07:36
Physical Exam
Physical Exam
Constitutional: Acutely Ill, Chronically Ill and Toxic
Cardiovascular: Regular Rate and S1/S2; Negative Murmur or Rub
Pulmonary: Clear, Symmetric and Non Labored; Negative Wheezes, Rales or Rhonchi
Gastrointestinal: Soft, Non Tender, Non Distended, No Rebound and No Guarding
Genito-Urinary: Turbid Urine (brown)
Skin: Warm and Dry; Negative Rash or Jaundice
Lines: Other (rectal tube in place with liquid stool)
Lab / Diagnostic Study Results
09/20/23 03:32
PT 29.6 Sec (11.4-14.6) H 09/20/23 03:32
INR 2.82 09/20/23 03:32
Lactic Acid 19.5 mmol/L (0.7-2.0) H* 09/20/23 03:32
Ur Squamous Epith Cells >30 /LPF (Few) 09/18/23 11:07
Microbiology Results
Micro:
09/18/23 11:07 Urine Culture - Preliminary
Urine Tamia albicans
09/20/23 01:57 Influenza Types A & B (XI) - Final
Nasal Swab Negative for Influenza A & B, NAAT
Negative results must be combined with clinical observations
and patient history.
Nucleic Acid Amplification test (NAAT)performed on the
[employer] platform.
09/18/23 11:22 Blood Culture - Preliminary
Blood/Venous No Growth in 24 hours- Final report to follow
09/18/23 10:47 Blood Culture - Preliminary
Blood/Venous No Growth in 24 hours- Final report to follow
09/18/23 01:15 C. difficile GDH Antigen & Toxins - Final
Feces/Stool Negative for toxigenic C.difficile
09/16/23 13:36 MRSA Screen - Final
Nose No Methicillin Resistant Staphylococcus aureus isolated.
Assessment / Plan
Progressive Shock
Multisystem Organ Failure
Hypoxemic Resp Failure
intermittent ventricular arrhythmias, long QTc when in sinus rhythm
Shock liver
ERIKA on CKD
Candiduria
- Prognosis appears grim in this critically ill patient - care likely futile - patient actively dying in my opinion
- Patient recently being ill and recovering is a marker for frailty as most terminal patients suffer a step wesley decline without full recovery to baseline with each progressive illness until they ultimately pass.
- repeat blood cultures x2 now
- CT chest/abd/pelvis - chest atelectasis - no evidence of pneumonia, sterocoral colitis/procitis without obstruction, mild nonspecific perinephric stranding, gallbladder surgically absent,
- risks of fluconazole profound and not an appropriate medication at this time; flucytosine also limited by concern for hepatic toxicity, [id number] limited by risk of arrhythmias - bladder wash with ampho ineffective
- trial of micafungin in case candidemia is driving clinical picture; would not treat pyelonephritis however there isnt another appropriate drug at this time - replace tate (decrease bioburden of tamia)
- had bowel movements 09/18 and 09/19, bowel regimen is ordered prn - rectal tube in place
- agree with vanc/cefepime/metronidazole
- follow clinically - suspect patient will likely pass in hours to days, recommend hospice
Total critical care time: 62 minutes
�
I was immediately available to the patient; I personally reviewed her extensive chart, examined, reviewed labs, diagnostic images/reports, interpretations, treatment plans, discussed patient care with other providers and documented in the medical
record.
--- NOTE | 2023-09-20 09:59 | PHA.VAN.FU ---
Vancomycin Assessment / Plan
- Assessment
Renal Function: SCR Increasing
WBC's are: Trending Up
In the past 24 hrs, patient has been: Febrile
Concomitant Antimicrobials: cefepime, metronidazole, micafungin
- Assessment - Therapeutic Drug Monitoring
Random Level: 15.7 ( after 1250 mg given yesterday @ 11:14)
- Dosing Plan
Continue: dose by random level
Dosing by Level: Re-dose today (750 mg x 1 dose ( ~ 10 mg/kg))
- Monitoring Plan
Random Level: repeat random am 09/21
- Follow Up
Pharmacy will continue to follow.
Vancomycin Follow UP
- -
Patient Age: 83
Patient Sex: Female
Vancomycin Day #: 2
Indication: Other
Requesting Provider: Alfonso
Pertinent Antimicrobial Allergies:
cephalexin, latex, sulfonamide antibiotics
Height / Weight:
Height 5 ft 10 in
Actual Weight 78.6 kg
Pertinent Past Medical History: CKD IV
- Vital Signs / Lab Results
Temp Pulse Resp BP Pulse Ox
100.2 F 122 22 109/30 98
09/20/23 07:30 09/20/23 09:20 09/20/23 09:20 09/20/23 09:20 09/20/23 09:20
Lab Results - Hematology
09/18/23 09/18/23 09/19/23
06:49 10:47 18:55
WBC 17.9 H 16.8 H 11.8 H
09/20/23
03:32
WBC 29.9 H
Lab Results - Chemistry
09/18/23 09/18/23 09/19/23
06:49 16:54 03:30
BUN 57 H 61 H 67 H
Creatinine 2.8 H 3.1 H 2.7 H
Estimated Creat Clear 16 15 17
Albumin
09/19/23 09/20/23 09/20/23
18:55 03:32 07:40
BUN 63 H 64 H 62 H
Creatinine 3.1 H 4.0 H 3.8 H
Estimated Creat Clear 15 11 12
Albumin 2.6 L
09/20/23
03:32
Lactic Acid 19.5 H*
Microbiology Results
09/18/23 11:07 Urine Culture - Preliminary
Urine Ginny albicans
09/20/23 01:57 Influenza Types A & B (XI) - Final
Nasal Swab Negative for Influenza A & B, NAAT
Negative results must be combined with clinical observations
and patient history.
Nucleic Acid Amplification test (NAAT)performed on the
[employer] platform.
09/18/23 11:22 Blood Culture - Preliminary
Blood/Venous No Growth in 24 hours- Final report to follow
09/18/23 10:47 Blood Culture - Preliminary
Blood/Venous No Growth in 24 hours- Final report to follow
09/18/23 01:15 C. difficile GDH Antigen & Toxins - Final
Feces/Stool Negative for toxigenic C.difficile
Therapeutic Drug Monitoring
Random Vancomycin 15.7 ug/ml 09/20/23 03:32
[2023-09-20 11:07] LABS: Lactic Acid 23.1 mmol/L (0.7-2.0)
[2023-09-20] MEDS: MYCAMINE 105 MG IV (11:24)
[2023-09-20] MEDS: STERILE WATER FOR INJECTION 10 ML IV (11:24)
[2023-09-20] MEDS: MAXIPIME 500 MG IV (11:25)
[2023-09-20 12:07] LABS: Blood Urea Nitrogen 60 mg/dl (7-17); Calcium 7.8 mg/dl (8.4-10.2); Carbon Dioxide 9 mmol/L (22-30); Chloride 92 mmol/L (98-107); Glucose 172 mg/dl (70-99); Potassium 5.5 mmol/L (3.5-5.1); Sodium 134 mmol/L (135-145)
--- NOTE | 2023-09-20 12:11 | PTCARENOTE ---
Pt unresponsive and agonal on vent. Pupils 4mm and sluggish. Sclera edema.
Afib 130-140s. General anasarca. Left hand +4 edema and starting to blister.
Vent setting A/C 22/300/5/40% Resp rate 30s. SpO2 occasionally picks up 98%
Remains on Levophed, Phenylephrine, Vasopressin and bicarb gtt.
Extremities cool with poor cap refill. Toes cyanotic.
Bo exchanged. Output dread and cloudy with large amount of sediment.
Loose brown stool via rectal trumpet.
All other assessments unchanged from am
Family at bedside.
[2023-09-20 12:20] LABS: Estimated Creatinine Clearance 12 ml/min; eGFR 11.19
[2023-09-20] MEDS: NOVOLOG FLEXPEN-MODERATE RESISTANCE 1 UNITS SC ×2 (13:13→17:42)
[2023-09-20 13:24] LABS: Glucose - Point of Care 183 mg/dl (70-99)
[2023-09-20] MEDS: VANCOCIN 150 IV (13:37)
--- NOTE | 2023-09-20 13:55 | W.PN.CARDCBS ---
Today's Communication / Plan
-
Recommend extubation and transition to comfort care
Will sign off
Impression / Plan
-
PCP: Dr Blayne Cheney
Air Traffic Controller: Dr. Ronny Raines
Impression:
Acute hypoxic respiratory failure with respiratory arrest in PACU post-op shoulder surgery 09/16/23
s/p Elective right reverse TSA 09/16/23
h/o fall and right humerus fracture 08/25/23
h/o acute hypoxemic respiratory insufficiency and somnolence likely due to opiates, gabapentin, sertraline and alprazolam prior to admission 09/02/23
Elevated Troponin
CAD s/p CABG WOOD-LAD, SVG-OM and MAZE 2011
Paroxysmal Afib
Not chronically anticoagulated due to Watchman in place
h/o Watchman placement 2016
very small leak (<5mm) by HUSAM 01/01/17 and 07/06/17, but this size leak is acceptable for this device.
h/o CVA 06/2017
CKD 4
Chronic HFpEF
cRBBB
HTN
COPD
Dementia/cognitive dysfunction
Anemia of Chronic Disease
Hull cirrhosis
DM-II with Neuropathy
Hypothyroidism
Echo 05/12/2022:�normal left ventricular size and function with ejection fraction of 55 to 60% and mild LVH.� Mild mitral regurgitation.� Mild tricuspid insufficiency with mildly elevated pulmonary pressures estimated at 40 to 45 mmHg.� No
significant change from September 20, 2021
Echo 01/06/2023: Ejection fraction 50 to 55%, dilated hypokinetic right ventricle
Echo 08/17/23: EF 50% with moderate TR, pulmonary artery pressure 32 mmHg, severely dilated and hypokinetic right ventricle flattened septum in diastole consistent with RV pressure overload and no significant change from December 2022.
Plan:
Events of last night noted. Patient now on high-dose pressor therapy, intubated, poorly responsive. Patient intubated at request of family members yesterday when impending respiratory arrest was present. Jayme discussion of likelihood of good
outcome was presented to family who elected for intubation.
Preliminary echo done early this afternoon normal LV function, RV remains severely dilated and hypokinetic as was the case in early August of this year., Also similar to 2022.
Rhythm is atrial fibrillation with rapid ventricular response.
Family now considering withdrawal of care which I think is appropriate.
We will sign off, please call if questions.
[facility] data 09/17/2023:
Patient had a respiratory arrest event in PACU yesterday and now her Troponin is elevated so cardiology has been consulted. Patient fell and fractured her right humerus 08/25/23 and was sent to [facility] for rehab. Patient was sent from [facility] to for
respiratory distress and somnolence on 09/02/23. That event was thought to be from recent initiation of pain meds for her fracture. Patient was seen in the cardiology office 09/09/23 for preoperative cardiovascular evaluation for elective right
reverse TSA. Patient reported feeling well at that time and denied any chest pain or SOB. Patient had an up to date echo from 08/17/23 that showed EF 50% and a dilated and hypokinetic RV that was unchanged from echo 12/2022. Patient had an admission
for PNA, CHF and ERIKA 08/16/23 until 08/21/23 and discharge weight was 189 lbs. Patient says she felt well leading up to surgery yesterday and that she does not recall feeling SOB post-op. Nursing and attending notes reviewed, patient was noted to be
acutely hypoxic and apneic upon arrival to PACU and was ventilated and then given Narcan, flumazenil and sugammadex with improvement in oxygenation and respirations. ECG at that time looked like Afib, but now back in SR. Initial Troponin was 0.164
and now up to 0.888. No chest pain.
-Patient with acute hypoxic respiratory failure and respiratory arrest after right shoulder surgery yesterday that improved with Narcan, flumazenil and sugammadex without recurrence. Patient had a similar hypoxic event when she was sent from [facility] to
ER 09/02/23 thought to be related to pain meds and BZDs.
Progress Note - Air Traffic Controller
Subjective
Date of Service: September 20, 2023: Clinical data reviewed, as below, troponin now up to 17
Objective
Labs:
09/20/23 03:32
Labs
Hgb 9.8 g/dL (12.0-16.0) L 09/20/23 03:32
Hct 34.0 % (37.0-47.0) L 09/20/23 03:32
Plt Count 402 10^3/uL (130-400) H D 09/20/23 03:32
PT 29.6 Sec (11.4-14.6) H 09/20/23 03:32
INR 2.82 09/20/23 03:32
APTT 39.2 Sec (23.4-35.0) H 09/20/23 03:32
Sodium 134 mmol/L (135-145) L 09/20/23 11:24
Potassium 5.5 mmol/L (3.5-5.1) H 09/20/23 11:24
BUN 60 mg/dl (7-17) H 09/20/23 11:24
Creatinine 3.8 mg/dL (0.6-1.0) H 09/20/23 11:24
Glucose 172 mg/dl (70-99) H 09/20/23 11:24
Troponins
09/17/23 09/18/23 09/18/23
16:21 06:49 10:47
Troponin I 1.060 H* 1.240 H* 3.070 H* D
09/18/23 09/18/23 09/19/23
16:54 23:17 05:36
Troponin I 7.380 H* D 9.390 H* D 7.290 H*
09/19/23 09/20/23 09/20/23
18:55 03:32 03:32
Troponin I 5.700 H* Cancelled 12.600 H*
09/20/23
10:32
Troponin I 17.300 H* D
Vital Signs and I&O:
Vital Signs
Temp Pulse Resp BP Pulse Ox
38.6 C H 141 35 80/63 100
09/20/23 11:30 09/20/23 11:50 09/20/23 11:50 09/20/23 11:50 09/20/23 09:40
Vital Signs
Temp Pulse Resp BP Pulse Ox
38.6 C H 141 35 80/63 100
09/20/23 11:30 09/20/23 11:50 09/20/23 11:50 09/20/23 11:50 09/20/23 09:40
Intake & Output
09/18/23 09/19/23 09/20/23 09/21/23
07:59 07:59 07:59 07:59
Intake Total 720 / 720 1060 / 1060 3535.3 / 3867.3 2471 / 2471
Output Total 700 / 700 500 / 500 350 / 355 60 / 60
Balance 20 / 20 560 / 560 3185.3 / 3512.3 2411 / 2411
Physical Exam
Physical Exam
Intubated, not responsive, tachycardic, hypotensive
Distant heart tones, tachycardic,
Abdomen benign
Deformity left wrist
Some edema
--- NOTE | 2023-09-20 14:46 | CHAP ---
Paged for Margie's family, I offered spiritual and emotional support, and called the emergency rn production line. While waiting for the rn production, we offered prayers from the [employer]. We commended Margie to God, thanking Him for her life and love, and
asking peace for all. A prayer blanket was given.
--- NOTE | 2023-09-20 15:15 | PTCARENOTE ---
pt remains agonal on vent. Maxed on 3 pressors. No output via tate except a few drops of dread, turbid urine.
Extremities cold and pale. Unable to find doppler pedal pulses.
DNR bracelet applied per order.
[2023-09-20] MEDS: NEO-SYNEPHRINE 1% 260 MG IV (15:34)
[2023-09-20] MEDS: LEVOPHED 258 MG IV (17:42)
[2023-09-20 17:46] LABS: Glucose - Point of Care 197 mg/dl (70-99)
[2023-09-20 18:29] LABS: Blood Urea Nitrogen 62 mg/dl (7-17); Calcium 7.2 mg/dl (8.4-10.2); Carbon Dioxide 7 mmol/L (22-30); Chloride 86 mmol/L (98-107); Glucose 157 mg/dl (70-99); Sodium 131 mmol/L (135-145)
[2023-09-20 18:31] LABS: Estimated Creatinine Clearance 11 ml/min; eGFR 10.22
--- NOTE | 2023-09-20 19:00 | PTCARENOTE ---
Unable to verify vital signs captured before 1845.
[2023-09-20] MEDS: CRESTOR PO (20:31)
--- NOTE | 2023-09-20 21:40 | PTCARENOTE ---
Received pt at 1900 intubated, max'd on 3 pressors. Family at bedside- updated on care and support given. Afib on tele. HR was in 70s then slowly began dropping over past few hours. Pt. at 2105. [employer] to bedside.
--- NOTE | 2023-09-20 21:50 | W.PN.DEATH ---
Pronouncement of
-
Called to see patient to pronounce.
No spontaneous heart tones or respirations noted.
Patient not responsive to verbal stimuli.
Patient is pronounced .
Time of : 21:05
Date of : 09/20/23
Cause of : septic shock
Family Notified: Yes (family at bedside at time of )
--- NOTE | 2023-09-21 00:07 | PTCARENOTE ---
[facility] called. They do not wish to proceed with donation due to pt age. Spoke with Sharonda Castillo. Post mortem care provided and [place] [facility] [place]
== END 2023-09-20 21:05 | disposition expired | DRG 483 ==
LOC: ICU 05:51
PROVIDERS: Nurse Practitioner Family; Nurse Practitioner Gerontology; Physician Assistant; Physician Assistant Medical; ADMITTING PHYSICIAN Orthopaedic Surgery Hand Surgery; ATTENDING PHYSICIAN Internal Medicine; CONSULT PHYSICIAN Internal Medicine Cardiovascular Disease; CONSULT PHYSICIAN Internal Medicine Critical Care Medicine; CONSULT PHYSICIAN Internal Medicine Pulmonary Disease; CONSULT PHYSICIAN Psychiatry & Neurology Neurology; CONSULT PHYSICIAN Specialist; CONSULT PHYSICIAN Student in an Organized Health Care Education/Training Program
PROC: 0RRJ0JZ Replacement of Right Shoulder Joint with Synthetic Substitute, Open Approach (ICD-10-PCS; 2023-09-16)
DX: S42.291A Other displaced fracture of upper end of right humerus, initial encounter for closed fracture (principal); J18.9 Pneumonia, unspecified organism; J96.01 Acute respiratory failure with hypoxia; G92.8 Other toxic encephalopathy; R65.21 Severe sepsis with septic shock; J96.02 Acute respiratory failure with hypercapnia; I50.32 Chronic diastolic (congestive) heart failure; N18.4 Chronic kidney disease, stage 4 (severe); I13.0 Hypertensive heart and chronic kidney disease with heart failure and stage 1 through stage 4 chronic kidney disease, or unspecified chronic kidney disease; F03.93 Unspecified dementia, unspecified severity, with mood disturbance; J44.0 Chronic obstructive pulmonary disease with (acute) lower respiratory infection; K92.2 Gastrointestinal hemorrhage, unspecified; N39.0 Urinary tract infection, site not specified; N17.9 Acute kidney failure, unspecified; I5A Non-ischemic myocardial injury (non-traumatic); J98.11 Atelectasis; G93.40 Encephalopathy, unspecified; E87.29 Other acidosis; S42.241A 4-part fracture of surgical neck of right humerus, initial encounter for closed fracture; M19.011 Primary osteoarthritis, right shoulder; I48.0 Paroxysmal atrial fibrillation; I25.10 Atherosclerotic heart disease of native coronary artery without angina pectoris; K21.9 Gastro-esophageal reflux disease without esophagitis; E78.00 Pure hypercholesterolemia, unspecified; E03.9 Hypothyroidism, unspecified; F32.A Depression, unspecified; I45.10 Unspecified right bundle-branch block; B19.20 Unspecified viral hepatitis C without hepatic coma; K58.9 Irritable bowel syndrome, unspecified; E11.22 Type 2 diabetes mellitus with diabetic chronic kidney disease; D63.8 Anemia in other chronic diseases classified elsewhere; E11.40 Type 2 diabetes mellitus with diabetic neuropathy, unspecified; E11.65 Type 2 diabetes mellitus with hyperglycemia; E16.2 Hypoglycemia, unspecified; E87.5 Hyperkalemia; D50.9 Iron deficiency anemia, unspecified
CPT/HCPCS: 36600; 70450; 71045; 71250; 73020; 74176; 80048; 80053; 80202; 81003; 81015; 82728; 82805; 82962; 83540; 83550; 83605; 83735; 83880; 84478; 84484; 85014; 85018; 85027; 85610; 85730; 86850; 86900; 86901; 87040; 87070; 87077; 87086; 87186; 87324; 87449; 87502; 87811; 92610; 93005; 93306; 94002; 94003; 94640; 94660; 95816; 97163; 97166; 97167; C1713; C1776; J1160; J7030